=== PATIENT | male | born 1940 | race Caucasian/White ===

== ENCOUNTER 2019-10-30 11:18 | Inpatient (IN) | payer MEDICARE ==
[2019-10-30] MEDS ORDERED: D5 1/2 NS w/20 mEq KCL 0 ML ONE (11:33)
[2019-10-30] MEDS ORDERED: Dextrose 50% Abboject 50 ML SYRINGE ONE (11:35)
[2019-10-30] MEDS ORDERED: Metoclopramide HCl 10 MG TAB ONE (11:37)
[2019-10-30] MEDS ORDERED: Albuterol Sulfate 2.5 mg/3 ml Neb ONE (12:02)
[2019-10-30 12:13] LABS: Actual Bicarbonate (HCO3a) 11.9 mEq/L (22-28); Analyzer IN Cardio ER; Base Excess (BEa) -15.1 mEq/L (-2.0 to +3.0); Calcium, Ionized 1.05 mmol/L (1.12-1.30); Carboxyhemoglobin (COHb) 0.3 gm% (0.0-3.0); Hemoglobin (Hb) 8.8 g/dL (14.0-18.0); Potassium - ABG Lab 4.56 mmol/L (3.70-5.30)
[2019-10-30] MEDS ORDERED: Dexamethasone 10 MG/ML VIAL ONE (12:14)
[2019-10-30] MEDS ORDERED: Magnesium 2 GM/50 ML BAG (IN WATER) ONE (12:14)
[2019-10-30 12:18] LABS: Puncture Site LRA; pH, Arterial 7.19 (7.35-7.45)
[2019-10-30 12:50] LABS: Hemoglobin 9.1 g/dL (14.0-18.0); Red Blood Cell (RBC) Count 2.67 mill/uL (4.70-6.10); White Blood Cell (WBC) Count 2.4 thou/uL (4.8-10.8)
[2019-10-30 12:51] LABS: #Lymphocytes 0.9 thou/uL (1.20-3.40); #Monocytes 0.4 thou/uL (0.11-0.59); #Neutrophils 1.2 thou/uL (1.40-6.50); %Basophils 0.7 % (0.0-1.0); %Eosinophils 0.3 % (0.0-10.0); %Lymphocytes 35.5 % (21.0-51.0); %Monocytes 14.9 % (0.0-10.0); %Neutrophils 48.7 % (42.0-75.0); Platelet Count 159 thou/uL (130-400)
[2019-10-30 13:00] LABS: Bilirubin Negative (Negative); Blood, Urine Small (Negative); Clarity Clear (Clear); Glucose, Urine (Dipstick) Negative (Negative); Leukocyte Negative (Negative); Nitrite Negative (Negative); Protein, Urine (Dipstick) 30 mg/dL (Neg-Trace); Urobilinogen 0.2 mg/dL (Less than 2)
[2019-10-30 13:01] LABS: RBC/HPF 0-3 HPF (0-3); Squamous Epithelial 0-3 HPF (0-3); WBC/HPF 0-3 HPF (0-3)
[2019-10-30 13:02] LABS: Bacteria/HPF 1+ HPF (None Seen)
[2019-10-30 13:07] LABS: Mean Corpuscular HGB CONC 32.1 g/dL (32.0-36.0); Mean Corpuscular Hemoglobin 34.1 pg (27.0-31.0); RBC Distribution Width 14.4 % (11.5-14.5)
[2019-10-30 13:11] LABS: ALT (SGPT) 19 U/L (8-55); AST (SGOT) 32 U/L (5-34); Albumin 3.1 g/dL (3.4-4.8); Alkaline Phosphatase 118 U/L (40-110); Anion Gap 14 mmol/L (10-20); BUN (Urea Nitrogen) 28 mg/dL (8.4-25.7); Bilirubin, Total 0.3 mg/dL (0.2-1.2); CK (CPK) 63 U/L (30-200); Calc. Creatinine Clearance 0 mL/min (70-130); Calcium 6.8 mg/dL (7.8-10.44); Carbon Dioxide 13 mmol/L (23-31); Chloride 118 mmol/L (98-107); Estimated GFR-MDRD 29; Globulin 2.8 g/dL (2.4-3.5); Glucose 106 mg/dL (83-110); Lipase 9 U/L (8-78); Potassium 5.1 mmol/L (3.5-5.1); Protein, Total 5.9 g/dL (5.8-8.1); Sodium 140 mmol/L (136-145)
--- NOTE | 2019-10-30 13:20 | RAD ---
Chest one view HISTORY: Fever. Cough. COMPARISON: 05/01/2016. FINDINGS: Cardiac silhouette is magnified by projection. Pulmonary vasculature is unremarkable. Shallow inspiration accentuates pulmonary markings. Patient is rotated rightward. There is calcificat ion within the arterial structures. Postoperative changes are evident. Subtle ill-defined opacity at the right lung base partially obscures the apex of the right hemidiaphr agm less prominent parenchymal opacity at the left lateral lung base. No evidence of pneumothorax. Osseous structures are demineralized. IMPRESSION: Subtle bibasilar infiltrate, right greater than left. Clinical correlation regarding othe r signs and symptoms of right basilar pneumonitis is required. Atherosclerosis. Osteoporosis.
[2019-10-30 13:22] LABS: MDiff Complete? YES; Macrocytosis SLIGHT = 6-15 cells (100X) (0-5/hpf); Platelet Morphology Comment Appears Adequate; Polychromasia SLIGHT = 2-3 cells (100X) (0-2/hpf); Tear Drops SLIGHT = 2-5 cells (100X) (0-1/hpf)
[2019-10-30] MEDS ORDERED: Insulin Regular 300 UNITS/3 ML VIAL SC PRN ×2 (14:15)
[2019-10-30] MEDS ORDERED: Dextrose 50% Abboject 50 ML SYRINGE SLOW IVP PRN (14:15)
[2019-10-30] MEDS ORDERED: Dextrose 5% in Water 1,000 ML IV PRN (14:15)
[2019-10-30] MEDS ORDERED: Calcium Carbonate 500 MG ChewTAB PO PRN (14:18)
[2019-10-30] MEDS ORDERED: Acetaminophen 650 MG Suppository PR PRN (14:18)
[2019-10-30] MEDS ORDERED: Acetaminophen 650 MG/20.3 ML UDCUP PO PRN (14:24)
[2019-10-30] MEDS ORDERED: Sodium Bicarbonate 150 MEQ in Dextrose 5% in Water 1,000 ML IV SCH ×2 (14:30→16:03)
[2019-10-30] MEDS ORDERED: Enoxaparin Sodium 80 MG/0.8 ML SYRINGE ONE ×2 (14:39→14:42)
[2019-10-30 14:48] LABS: Legionella Urinary Ag Negative (Negative); Strep pneumo Urine Ag NEGATIVE (NEGATIVE)
[2019-10-30 15:48] LABS: Lactic Acid 3.5 mmol/L (0.5-2.2)
[2019-10-30] MEDS ORDERED: Nitroglycerin 0.4 MG TAB (25 Tab Bottle) PO PRN (16:18)
--- NOTE | 2019-10-30 16:26 | HP ---
PRIMARY CARE PHYSICIAN: Dr. Arvin Gonzales. CHIEF COMPLAINT: Altered mentation. HISTORY OF PRESENT ILLNESS: The patient is an 79-year-old male with diabetes mellitus type 2, presented to the emergency room by EMS with above complaint. The patient currently lives at home with his and daughter. He is on insulin on an as-needed basis. He checks his sugar on a daily basis. Over the last few days, the patient has flu-like symptoms. He started wheezing this morning. He also had some cough that was productive of small amount of phlegm. No fever or sick contacts reported. His blood sugar this morning was 220. He received 7 units of regular insulin per sliding scale by his family member. He was found to have altered mentation for which EMS was called. His blood sugar at home was 34. He received IV dextrose and was brought into the emergency room. His mentation improved. In the emergency room, he was placed on noninvasive positive-pressure ventilation. His x-ray showed bibasilar infiltrate. PAST MEDICAL HISTORY: 1. Diabetes mellitus type 2. 2. Hyperlipidemia. 3. Coronary artery disease, status post bypass in 2006. 4. History of nonsustained atrial arrhythmias. 5. Diabetes mellitus type 2. PAST SURGICAL HISTORY: 1. Coronary artery bypass grafting in 2006. 2. Hernia repair. ALLERGIES: NO KNOWN DRUG ALLERGIES. CURRENT HOME MEDICATIONS: The patient is on insulin as needed. Other medications to be verified. SOCIAL HISTORY: The patient currently lives at home as discussed above. No current use of smoking, alcohol, or drug use. He is full code. Please note that there is no family at the bedside. History is limited since he is on noninvasive positive-pressure ventilation and is hard of hearing. FAMILY HISTORY: Negative for heart disease. REVIEW OF SYSTEMS: Cannot be reliably obtained from the patient due to current mentation. PHYSICAL EXAMINATION: VITAL SIGNS: Temperature 97.5, respirations 20, and pulse rate of 93 with a blood pressure of 118/88 with O2 saturation of 100% on noninvasive positive-pressure ventilation. GENERAL: An 79-year-old male with mild respiratory distress, on noninvasive positive-pressure ventilation. HEENT: Head, atraumatic and normocephalic. Sclerae anicteric. Dry mucous membranes. No oral lesion. NECK: Supple. No JVD appreciated. No carotid bruit. LUNGS: Showed expiratory wheezing along with rhonchi, which was scattered. There were some rales at bases. Minimal accessory muscle use. HEART: S1-S2 present. Regular rate and rhythm. No rubs or gallops. ABDOMEN: Soft and nontender. Bowel sounds present. No rebound or guarding. No costovertebral angle tenderness. EXTREMITIES: No calf tenderness. There is bilateral lower extremity edema, right more than left. NEUROLOGIC: The patient is moving all of his extremities appropriately. No new focal deficit. PSYCHIATRY: The patient is alert, awake, answering questions appropriately. However, history is limited due to noninvasive positive-pressure ventilation. No family at the bedside. SKIN: Warm and dry. LYMPH NODE: No palpable lymph nodes in the neck. PERIPHERAL: Vascular radial pulses palpable bilaterally. MUSCULOSKELETAL: No joint swelling or tenderness. LABORATORY FINDINGS: 1. EKG by my review showed atrial fibrillation with PVCs. 2. Chest x-ray by my review showed infiltrate at bilateral bases. 3. CBC showed WBC 2.4 with hemoglobin 9.1, hematocrit 28.4, and platelet of 159. 4. D-dimer was 2.7. 5. ABG showed pH of 7.19 with pCO2 of 32 and PO2 of 94 with bicarbonate of 11.9. 6. Chemistry showed sodium 140, potassium 5.1, chloride 118, bicarb of 13, BUN of 28, creatinine 2.17, and lactic acid 2.4. 7. Troponin was negative. BNP 161. 8. Ketone was 0.14. 9. Urine was negative for Strep pneumoniae or Legionella. 10. Influenza screen was negative. IMPRESSION: 1. Acute hypoxic respiratory failure, secondary to bilateral pneumonia. 2. Sepsis secondary to acute hypoxic respiratory failure. 3. Toxic metabolic encephalopathy, multifactorial. 4. Metabolic acidosis/lactic acidosis. 5. New diagnosis of atrial fibrillation. 6. Hypertension. 7. Hyperlipidemia. 8. History of abdominal aortic aneurysm. 9. Coronary artery disease, status post coronary artery bypass grafting. 10. History of nonsustained atrial arrhythmias. PLAN: The patient will be monitored in the intensive care unit. We will continue noninvasive positive-pressure ventilation. We will start him on empiric antibiotics. Consult Critical Care. Echocardiogram will be obtained. He received several medications including 1 mg/kg of Lovenox, Levaquin, and Decadron with IV fluids in the emergency room. We will recheck labs in a.m. We will get venous Doppler to rule out DVT. The patient understands the plan of care. We will discuss the plan of care with the family when they arrive. Job ID: [id number]
[2019-10-30] MEDS: Cefepime 1 GM in Sodium Chloride 0.9% 100 ML IVPB SCH (17:49)
--- NOTE | 2019-10-30 17:53 | ULT ---
Bilateral lower extremity venous Doppler ultrasound: 10/30/2019 COMPARISON: None HISTORY: Edema, swelling, assess for DVT TECHNIQUE: Multiplanar grayscale sonographic imaging of the venous structures of bilateral lower extr emities obtained with color flow and spectral analysis FINDINGS: Bilateral common femoral veins, greater saphenous veins, profunda femoral veins, femoral ve ins, popliteal veins, and posterior tibial veins are patent. There is normal blood flow, augmentation, and compression within the deep venous system bilaterally. No evidence for DVT on eithe r side IMPRESSION: No evidence for deep venous thrombosis of either lower extremity.
[2019-10-30] MEDS: Senokot S 8.6-50 MG TAB PO SCH (20:56)
[2019-10-30] MEDS: Famotidine 20 MG TAB PO SCH (20:56)
[2019-10-30] MEDS: Famotidine/PF 20 mg/2ml Vial SLOW IVP SCH (20:56)
[2019-10-30] MEDS ORDERED: Heparin 5,000 UNITS/ML VIAL SC SCH (21:00)
[2019-10-30 21:37] LABS: BUN (Urea Nitrogen) 29 mg/dL (8.4-25.7); Calc. Creatinine Clearance 27 mL/min (70-130); Calcium 6.4 mg/dL (7.8-10.44); Chloride 120 mmol/L (98-107); Estimated GFR-MDRD 27; Glucose 133 mg/dL (83-110); Potassium 5.8 mmol/L (3.5-5.1); Sodium 139 mmol/L (136-145)
[2019-10-30 21:39] LABS: Carbon Dioxide Less than 8 mmol/L (23-31)
[2019-10-30] MEDS ORDERED: Sodium Bicarb 50 MEQ/50 ML VIAL IVP SCH (23:30)
[2019-10-31] MEDS ORDERED: Sodium Chloride 0.9% 1,000 ML IV SCH (00:30)
[2019-10-31 04:33] LABS: Actual Bicarbonate (HCO3v) 13 mEq/L (22-28); Base Excess -12.3 mEq/L (-2.0 to +3.0); Calcium, Ionized 0.89 mmol/L (1.16-1.32); Chloride (ABG LAB) 116 mmol/L (98-106); Hemoglobin (Hb) 7.1 g/dL (12.6-17.4); Potassium - ABG Lab 4.75 mmol/L (3.70-5.30); Sodium 138.8 mmol/L (133-146); pH (venous) 7.29 (7.32-7.43)
[2019-10-31 04:44] LABS: ALT (SGPT) 14 U/L (8-55); AST (SGOT) 22 U/L (5-34); Albumin 2.4 g/dL (3.4-4.8); Alkaline Phosphatase 91 U/L (40-110); Anion Gap 15 mmol/L (10-20); BUN (Urea Nitrogen) 30 mg/dL (8.4-25.7); Bilirubin, Total 0.2 mg/dL (0.2-1.2); CRP (Inflammatory) 2.93 mg/dL (= or < 0.5); Calc. Creatinine Clearance 27 mL/min (70-130); Calcium 6.2 mg/dL (7.8-10.44); Carbon Dioxide 13 mmol/L (23-31); Chloride 116 mmol/L (98-107); Estimated GFR-MDRD 28; Globulin 2.4 g/dL (2.4-3.5); Glucose 129 mg/dL (83-110); Potassium 4.8 mmol/L (3.5-5.1); Protein, Total 4.8 g/dL (5.8-8.1); Sodium 139 mmol/L (136-145)
[2019-10-31 04:48] LABS: Lactic Acid 4.7 mmol/L (0.5-2.2)
[2019-10-31 05:42] LABS: Band 36 % (5-11); Lymphocytes 21 % (21-51); MDiff Complete? YES; Macrocytosis SLIGHT = 6-15 cells (100X) (0-5/hpf); Mean Corpuscular HGB CONC 32.6 g/dL (32.0-36.0); Mean Corpuscular Hemoglobin 34.6 pg (27.0-31.0); Mean Platelet Volume 8.3 fL (7.4-10.4); Monocytes 14 % (0-10); Neutrophil 29 % (42-75); Platelet Count 112 thou/uL (130-400); Platelet Morphology Comment Appears Decreased; RBC Distribution Width 14.2 % (11.5-14.5); Red Blood Cell (RBC) Count 2.03 mill/uL (4.70-6.10); White Blood Cell (WBC) Count 2.6 thou/uL (4.8-10.8)
[2019-10-31 07:14] LABS: Reticulocyte Count 2.2 % (0.5-1.5)
--- NOTE | 2019-10-31 07:34 | RAD ---
EXAM: Single view of the chest HISTORY: Shortness of breath and pneumonia COMPARISON: 10/30/2019 FINDINGS: Single view of the chest shows an enlarged but stable cardiomediastinal silhouette. The pa tient is status post sternotomy. Bilateral lower lobe opacities may represent atelectasis or infiltrates. The bones are unremarkable. IMPRESSION: Stable exam
[2019-10-31] MEDS: Sodium Bicarbonate 150 MEQ in Dextrose 5% in Water 1,000 ML IV SCH ×2 (08:17→15:31)
[2019-10-31] MEDS ORDERED: Prevnar 13-Val Conj/PF 0.5 ML SYRINGE IM ONE (09:00)
[2019-10-31] MEDS ORDERED: FLU VACC TS2019-20(65YR UP)/PF 180 MCG/0.5 ML SYRINGE IM ONE (09:00)
[2019-10-31 09:45] LABS: Hemoglobin 6.9 g/dL (14.0-18.0); Platelet Count 111 thou/uL (130-400)
[2019-10-31] MEDS: Saccharomyces boulardii 250 MG CAP PO SCH (09:46)
[2019-10-31] MEDS: Senokot S 8.6-50 MG TAB PO SCH ×2 (09:47→22:03)
[2019-10-31] MEDS: Aspirin 81 mg Enteric Coated Tablet PO SCH (09:47)
[2019-10-31 10:04] LABS: Anion Gap 16 mmol/L (10-20); BUN (Urea Nitrogen) 30 mg/dL (8.4-25.7); Calc. Creatinine Clearance 29 mL/min (70-130); Calcium 6.1 mg/dL (7.8-10.44); Carbon Dioxide 13 mmol/L (23-31); Chloride 114 mmol/L (98-107); Estimated GFR-MDRD 28; Glucose 190 mg/dL (83-110); Potassium 4.4 mmol/L (3.5-5.1); Sodium 139 mmol/L (136-145)
[2019-10-31 10:09] LABS: Lactic Acid 4.3 mmol/L (0.5-2.2)
--- NOTE | 2019-10-31 10:30 | CON ---
DATE OF CONSULTATION: 10/31/2019 REASON FOR CONSULTATION: ICU stay. This encompasses 70 minutes of time, of that time, greater than 50 minutes was spent with the patient and/or the patient's unit in the hospital. HISTORY OF PRESENT ILLNESS: The patient is an 79-year-old male who was hospitalized yesterday with complaints of low blood sugar and shortness of breath. He was briefly on noninvasive mechanical ventilation that has now been discontinued. He is now on room air, doing fine. PAST MEDICAL HISTORY: 1. Diabetes mellitus type 2. 2. Hyperlipidemia. 3. Coronary artery disease, requiring bypass surgery. 4. Atrial arrhythmias. PAST SURGICAL HISTORY: 1. Coronary artery bypass grafting. 2. Hernia repair. ALLERGIES: NONE. MEDICATIONS PRIOR TO ADMISSION: 1. NPH insulin. Apparently, the NPH was on the sliding scale at home. 2. Zocor. Current inpatient medications reviewed, listed in chart. REVIEW OF SYSTEMS: Otherwise, negative. PHYSICAL EXAMINATION: VITAL SIGNS: Temperature 98.2, pulse 70, blood pressure 117/54, O2 saturation 95%. HEENT: Unremarkable. 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 LUNGS: Coarse rhonchi. CARDIOVASCULAR: S1 and S2. Regular. ABDOMEN: Soft, nontender. EXTREMITIES: No clubbing, cyanosis, or edema. LABORATORY DATA: White count 2.6, hemoglobin 7, hematocrit 21.5, and platelet count 112. Sodium 139, potassium 4.8, chloride 116, BUN 30, creatinine 2.2, CO2 of 13, anion gap 11. Urinalysis shows protein. X-ray shows question bilateral lower lobe infiltrates. ASSESSMENT: 1. Hypoglycemia at the time of admission which is resolved. 2. Acute hypoxic respiratory failure, possibly secondary to pneumonia. 3. Severe metabolic acidosis. 4. Acute renal insufficiency. 5. Severe anemia. RECOMMENDATION: 1. I would suggest transfusing the patient 1 unit of blood since he has underlying coronary artery disease. 2. Continue the antibiotics. 3. Continue bicarbonate drip. 4. Consider further investigative work of anemia once the patient is stabilized. 5. He is stable enough to go to [facility]. Job ID: [id number]
[2019-10-31] MEDS: Vancomycin 1 GM in Premix Bag 1 BAG IVPB SCH (14:19)
[2019-10-31 18:18] LABS: Lactic Acid 3.7 mmol/L (0.5-2.2)
[2019-10-31 18:22] LABS: Anion Gap 14 mmol/L (10-20); BUN (Urea Nitrogen) 31 mg/dL (8.4-25.7); Calc. Creatinine Clearance 27 mL/min (70-130); Calcium 6.3 mg/dL (7.8-10.44); Carbon Dioxide 18 mmol/L (23-31); Chloride 110 mmol/L (98-107); Estimated GFR-MDRD 26; Glucose 64 mg/dL (83-110); Potassium 4.6 mmol/L (3.5-5.1); Sodium 137 mmol/L (136-145)
[2019-10-31] MEDS: Cefepime 1 GM in Sodium Chloride 0.9% 100 ML IVPB SCH (18:47)
--- NOTE | 2019-10-31 19:26 | CON ---
DATE OF CONSULTATION: 10/31/2019 CONSULTING PHYSICIAN: Milo Hair MD REASON FOR CONSULTATION: Acidosis. REASON FOR ADMISSION: Altered mentation. HISTORY OF PRESENT ILLNESS: This is an 79-year-old male with history of type 2 diabetes, hypertension, hyperlipidemia, and coronary artery disease, came to the hospital with altered mentation and has been evaluated. The patient was found to have severe acidosis, and Nephrology was consulted. He is on bicarb drip now. No fever or chills. The patient is feeling better. He was moved to [facility] when I saw him and having his dinner without any issues and no complaints. He is hard of hearing, and he does not have the hearing aid. PAST MEDICAL HISTORY: Positive for type 2 diabetes, hyperlipidemia, coronary artery disease, and arrhythmias. PAST SURGICAL HISTORY: Coronary artery bypass and hernia repair. HOME MEDICATIONS: Reviewed. ALLERGIES: NO KNOWN DRUG ALLERGIES. SOCIAL HISTORY: No smoking, alcohol, or illicit drug use. FAMILY HISTORY: No history of kidney disease or heart disease. REVIEW OF SYSTEMS: Could not be done because of hard of hearing. PHYSICAL EXAMINATION: GENERAL: This is an elderly male, in no apparent distress. VITAL SIGNS: Temperature 99.1, pulse 92, respiratory rate 18, blood pressure 86/41. HEENT: Atraumatic and normocephalic. NECK: Supple. CV: S1 and S2. Rate and rhythm are regular. RESPIRATORY: Clear. GASTROINTESTINAL: Abdomen is soft. MUSCULOSKELETAL: 1+ edema. DERMATOLOGIC: No skin rash. NEUROLOGIC: Alert and awake. PSYCHIATRIC: Mood and affect are normal. LABORATORY DATA: Potassium 4.6, BUN is 31, creatinine is 2.4. ASSESSMENT AND PLAN: 1. Acute kidney injury. Monitor labs. 2. Acidosis. Agree with bicarb drip for now. 3. Lactic acidosis. 4. Hypocalcemia. Monitor. 5. Anemia. Avoid nephrotoxins. Continue bicarb drip. We will monitor. Job ID: [id number]
[2019-10-31] MEDS: Famotidine 20 MG TAB PO SCH (22:03)
[2019-10-31] MEDS: Famotidine/PF 20 mg/2ml Vial SLOW IVP SCH (22:03)
[2019-10-31] MEDS: Acetaminophen 325 MG TAB PO PRN (22:03)
--- NOTE | 2019-10-31 22:24 | CT ---
CT ABDOMEN AND PELVIS WITH IV CONTRAST: Indications: Abdominal, pancytopenia. Comparison: October 2013 FINDINGS: The lung bases reveal bibasilar infiltrates and/or atelectasis with right side effusion. Liver, spleen, and pancreas unremarkable. Motion artifact degrades the study. Stomach and duodenum unremarkable. Small bowel loops show nonspecific distension without dilatation. Small bowel loops are seen lateral to the right colon which may indicate a component of malrotation. This is stable from the prior study . Stool throughout the colon. Prominent stool in the rectum could represent impaction. Aorta shows atherosclerotic change and mild aneurysmal dilatation. Distal abdominal aorta measures 3. 5 cm diameter. Diffuse haziness in the subcutaneous adipose suggests anasarca. The osseous structures show osteopenia and degenerative changes at both hips. IMPRESSION: 1. Bibasilar atelectasis and infiltrates and small right effusion. 2. Abdominal aortic aneurysm. 3. A possible fecal impaction. 4. Evidence of subcutaneous anasarca. POS: [facility]
--- NOTE | 2019-10-31 22:25 | PDOC.HOSPP ---
- Subjective Encounter Date: 10/31/19 Encounter Time: 12:30 Subjective: Patient seen and examined for Sepsis/Acidosis/Resp failure. Off NIPPV. No cough/ SOB/CP/fever. No new complaints. No overnight events - Objective Vital Signs & Weight: Vital Signs (12 hours) Temp Pulse Pulse Resp BP Pulse Ox 10/31/19 18:38 92 16 98 10/31/19 15:00 99.1 F 10/31/19 14:31 78 26 H 99 10/31/19 14:24 99.2 F 79 25 H 126/55 L 98 10/31/19 13:13 99.1 F 89 21 H 114/66 97 10/31/19 12:50 98.2 F 91 25 H 127/65 96 10/31/19 11:00 98.1 F Weight Admit Weight 172 lb Weight 172 lb 13.478 oz Most Recent Monitor Data Heart Rate from ECG 96 NIBP 100/58 NIBP BP-Mean 72 Respiration from ECG 27 SpO2 97 I&O: 10/30/19 10/31/19 11/01/19 06:59 06:59 06:59 Intake Total 2528 2038 Output Total 425 800 Balance 2103 1238 Result Diagrams: 10/31/19 09:29 10/31/19 17:55 Additional Labs: Accuchecks 10/31/19 10/31/19 10/31/19 22:10 16:29 12:15 POC Glucose 149 H 77 233 H 10/31/19 10/30/19 07:59 23:55 POC Glucose 109 139 H EKG Reviewed by me: Yes (Tele SR) Hospitalist ROS - Review of Systems Respiratory: denies: cough, dry, shortness of breath, hemoptysis, SOB with excertion, pleuritic pain, sputum, wheezing, other Cardiovascular: denies: chest pain, palpitations, orthopnea, paroxysmal noc. dyspnea, edema, light headedness, other Gastrointestinal: denies: nausea, vomiting, abdominal pain, diarrhea, constipation, melena, hematochezia, other - Medication Medications: Active Medications Generic Name Dose Route Start Last Admin Trade Name Freq PRN Reason Stop Dose Admin Acetaminophen 650 mg 10/30/19 14:18 10/31/19 22:03 Tylenol PO 650 mg Q4H PRN Administration Headache/Fever/Mild Pain (1-3) Albuterol/Ipratropium 3 ml 10/30/19 14:30 10/31/19 18:38 Duoneb NEB 3 ml [id number] MICHAEL Administration Aspirin 81 mg 10/31/19 09:00 10/31/19 09:47 Ecotrin PO 81 mg DAILY MICHAEL Administration Famotidine 20 mg 10/30/19 21:00 10/31/19 22:03 Pepcid SLOW IVP Not Given QPM MICHAEL Famotidine 20 mg 10/30/19 21:00 10/31/19 22:03 Pepcid PO 20 mg QPM MICHAEL Administration Cefepime HCl 1 gm/ Sodium 100 mls @ 200 mls/hr 10/30/19 18:00 10/31/19 18:47 Chloride IVPB 100 mls Q24H MICHAEL Administration Sodium Bicarbonate 150 meq/ 1,150 mls @ 70 mls/hr 10/31/19 06:25 10/31/19 15: 31 Dextrose/Water IV 1,150 mls .[id number] MICHAEL Administration Vancomycin HCl 1 gm/ Device 200 mls @ 200 mls/hr 10/31/19 14:00 10/31/19 14: 19 IVPB 200 mls 1400 MICHAEL Administration Saccharomyces Boulardii 250 mg 10/31/19 09:00 10/31/19 09:46 Florastor PO 250 mg DAILY MICHAEL Administration Senna/Docusate Sodium 1 tab 10/30/19 21:00 10/31/19 22:03 Senokot S PO 1 tab BID MICHAEL Administration - Exam General Appearance: NAD Neck: supple, no JVD Heart: no gallops, no rubs, normal peripheral pulses, murmur present Respiratory: no wheezes, no rales, no ronchi, rhonchi Gastrointestinal: non-tender, non-distended, normal bowel sounds, no guarding, no rigidity Extremities: no cyanosis Neurological: no new deficit Psychiatric: normal affect, A&O x 3 Hosp A/P - Plan DVT proph w/SCDs 1. Acute hypoxic respiratory failure, secondary to bilateral pneumonia. s/p NIPPV 2. Sepsis secondary to acute hypoxic respiratory failure. 3. Toxic metabolic encephalopathy, multifactorial. 4. Metabolic acidosis/lactic acidosis. 5. New diagnosis of atrial fibrillation. 6. Anemia prob due to nutritional def. r/o GI bleed 7. Hyperlipidemia. 8. Hypertension. 9. Coronary artery disease, status post coronary artery bypass grafting. 10. History of nonsustained atrial arrhythmias. 11. History of abdominal aortic aneurysm. 12. Thrombocytopenia PLAN: Transfuse 1 unit PRBC Check stool for occult blood Reti 2.2 Vit B12/Folic acid normal DC Levaquin Start IV Vancomycin Pulm/Nephro input appreciated Consult ID AM labs Transfer to [facility]
--- NOTE | 2019-10-31 22:45 | CON ---
DATE OF CONSULTATION: 10/31/2019 REASON FOR CONSULTATION: Bacteremia. HISTORY OF PRESENT ILLNESS: An 79-year-old who has a history of hypertension and CKD with prior abdominal aortic aneurysm repair as well as coronary artery disease and type 2 diabetes mellitus, who was brought into the emergency room, because of wheezing noticed by family. In addition to that there was some change in mental status associated with hypoglycemia. No headaches. No shortness of breath. The patient complains of pain in the perineal area mostly around what he describes as hernias and pain in the left hip area. Apparently, the left hip pain is a chronic process and for example, he will have to stand up to have a bowel movement, because he cannot sit down due to the hip chronic symptoms. PAST MEDICAL HISTORY: Includes coronary artery disease, type 2 diabetes, hyperlipidemia, hypertension, hernia, groin area, coronary bypass graft surgery. SOCIAL HISTORY: Current smoker, lives with family. No alcoholic beverage use. ALLERGIES: NONE. CURRENT MEDICATIONS: 1. Tylenol. 2. DuoNebs. 3. Ecotrin. 4. Tums. 5. Cefepime. 6. Glucagon. 7. Insulin. 8. Levofloxacin. 9. Vancomycin. PHYSICAL EXAMINATION: VITAL SIGNS: T-max 99.2, blood pressure 99/44, pulse 89, respirations 26 to 28 , O2 saturation 100. SKIN: The patient has peripheral IV access,no Vieira catheter. The patient has a lesion nodular measuring 1.5 cm with a central area of necrosis and surrounding borders, they are elevated consistent with basal cell carcinoma. No lymphadenopathy. HEENT: Alopecia. Ocular movements conjugate. The patient has lost lot of his eyelashes. Oral cavity with artificial dentures. He does not have any oral cavity lesions otherwise. NECK: Supple. No jugular vein distention. LUNGS: Symmetric breath sounds, but expiratory wheezing noticed in both right and left hemithorax. Diminished heart sounds. HEART: S1 and S2 with a soft aortic murmur. Regular rate. ABDOMEN: Somewhat distended. He feels tenderness on palpation of the suprapubic areas, right and left side and groin. There is marked tenderness on mobilization of the left hip, but not the right, particularly abduction and adduction of hip/ left lower extremity. Pulses are 1+ in dorsalis pedis. 1+ edema in lower extremities. Onychodystrophy noted. LABORATORY DATA: White cell count shows 2.4, now 2.6, hemoglobin 9 and 7, platelets 159 and now down to 111, neutrophil percentage 29, bands are 36. Previous values from 2017, white cell count is 9.4, hemoglobin was 11.7, MCV 106, actually before in 2017 MCV was 93, platelet count had been normal in the past measurements. Creatinine is at 2.25. It has been elevated back to 2014 around that same level. Lactic acid 4.3. Liver profile was within normal limits. CRP 2.93, albumin 3.1. Microbiology, we have 2 sets of blood cultures with Staphylococcus epidermidis, yet to be susceptibility tested. There is a respiratory virus PCR panel, which was negative. Influenza A and B as well negative. Chest x-ray with single view of the chest with enlarged, but stable cardiomediastinal silhouette. A venogram with no evidence of deep vein thrombosis to either extremity. There was an abdominal and pelvis CT from October 2013 with stable appearance of the abdominal aorta, status post remote history of aneurysm repair, distended gallbladder, nonspecific mural thickening of the descending and sigmoid colon. ASSESSMENT: 1. Coronary disease. 2. Hypertension. 3. Type 2 diabetes. 4. Pain in left hip, which appears to be chronic. 5. History of hypoglycemia. 6. Bacteremia. 7. Pancytopenia. DISCUSSION: Differential diagnosis includes a true bacteremia, which appears to be less likely versus factitious bacteremia due to contamination of the sample. The second option is the more likely one since the timing of the collection is indicated as being at same time. Also patient has no device or central catheter., typically Staph epidermidis is associated with those. Infrequently, it can be associated with eklutna valve endocarditis and infection of aortic aneurysms. The other concern with this gentleman is the pancytopenia, which is a new finding. He does have bandemia as well as leukopenia, severe anemia with microcytosis and some platelet count decrease. This could be on the basis of either myelodysplastic syndrome or some cofactor deficiency such as copper. His B12 appears to be within normal limits. Hemolysis would be another concern. Chronic liver disease is another area of concern. The patient has been started on vancomycin and we will see what the next days demonstrate in terms of progress and the final results of the blood cultures, but we may be able to discontinue it. We will go ahead and image his abdomen and pelvis with CT with oral contrast only, that will take a look at his left hip and see if he has any metastatic malignancy there in view of his chronic smoking. Job ID: [id number] JERROD
[2019-11-01 04:26] LABS: Lactic Acid 3.6 mmol/L (0.5-2.2)
[2019-11-01 04:32] LABS: ALT (SGPT) 13 U/L (8-55); AST (SGOT) 24 U/L (5-34); Albumin 2.2 g/dL (3.4-4.8); Alkaline Phosphatase 78 U/L (40-110); Anion Gap 14 mmol/L (10-20); BUN (Urea Nitrogen) 33 mg/dL (8.4-25.7); Bilirubin, Total 0.5 mg/dL (0.2-1.2); Calc. Creatinine Clearance 27 mL/min (70-130); Calcium 5.8 mg/dL (7.8-10.44); Carbon Dioxide 17 mmol/L (23-31); Chloride 110 mmol/L (98-107); Estimated GFR-MDRD 26; Globulin 2.3 g/dL (2.4-3.5); Glucose 125 mg/dL (83-110); Magnesium 1.8 mg/dL (1.6-2.6); Potassium 4.4 mmol/L (3.5-5.1); Protein, Total 4.5 g/dL (5.8-8.1); Sodium 137 mmol/L (136-145)
[2019-11-01 05:41] LABS: Anisocytosis SLIGHT = 6-15 cells (100X) (0-5/hpf); Band 13 % (5-11); Eosinophils 6 % (0-10); Hemoglobin 6.9 g/dL (14.0-18.0); Lymphocytes 46 % (21-51); MDiff Complete? YES; Mean Corpuscular HGB CONC 33.4 g/dL (32.0-36.0); Mean Corpuscular Hemoglobin 33.7 pg (27.0-31.0); Mean Platelet Volume 8.1 fL (7.4-10.4); Monocytes 12 % (0-10); Neutrophil 22 % (42-75); Platelet Count 110 thou/uL (130-400); Platelet Morphology Comment Appears Decreased; RBC Distribution Width 15.6 % (11.5-14.5); Red Blood Cell (RBC) Count 2.05 mill/uL (4.70-6.10); White Blood Cell (WBC) Count 3.4 thou/uL (4.8-10.8)
[2019-11-01] MEDS: Saccharomyces boulardii 250 MG CAP PO SCH (08:00)
[2019-11-01] MEDS: Senokot S 8.6-50 MG TAB PO SCH ×2 (08:00→20:17)
[2019-11-01] MEDS: Aspirin 81 mg Enteric Coated Tablet PO SCH (08:00)
--- NOTE | 2019-11-01 08:37 | PRG ---
DATE OF SERVICE: 11/01/2019 SUBJECTIVE: Mr. Zamudio seems to be doing reasonably well, did not require BiPAP last night. OBJECTIVE: VITAL SIGNS: Temperature 99.6, pulse 94, blood pressure 91/47, and O2 saturation 100%. HEENT: Unremarkable. NECK: Upper airway noises noted. LUNGS: Fairly clear. CARDIAC: S1 and S2. Regular. ABDOMEN: Soft. EXTREMITIES: Some edema in the right arm. DIAGNOSTIC DATA: His cultures are growing out gram-positive cocci in 2/2 bottles Staphylococcus epidermidis. White blood cell count is 3.4, hematocrit 20.9, and platelet count 110. Sodium 137, potassium 4.4, chloride 110, CO2 of 17, BUN 33, creatinine 2.4, and glucose 125. ASSESSMENT: 1. Bacteremia from Staphylococcus epidermidis. 2. Hypoglycemia, which is resolved. 3. Acute respiratory failure secondary to pneumonia. 4. Metabolic acidosis. 5. Acute renal insufficiency. 6. Severe anemia. PLAN: 1. Continue the bicarb drip. 2. We would transfuse one additional unit of blood and continue to monitor his labs. 3. Continue antibiotics per Dr. Keene. Job ID: [id number]
[2019-11-01] MEDS: Sodium Bicarbonate 150 MEQ in Dextrose 5% in Water 1,000 ML IV SCH ×2 (10:05→13:36)
--- NOTE | 2019-11-01 13:05 | PRG ---
DATE OF SERVICE: 11/01/2019 SUBJECTIVE: Patient was seen and examined at bedside and overnight events noted. Patient denies any shortness of breath or chest pain or palpitation. No history of nausea or vomiting or diarrhea or fever or chills or cramps. OBJECTIVE: GENERAL: This is an elderly male, in no apparent distress. VITAL SIGNS: Temperature 100.6. Heart rate 87. Respiratory rate 23. Blood pressure 95/56. HEENT: Atraumatic, normocephalic. Oral mucosa is moist NECK: Supple. CARDIOVASCULAR: S1, S2 heard. Rate and rhythm regular. RESPIRATORY: Clear to auscultation. GASTROINTESTINAL: Abdomen is soft. MUSCULOSKELETAL: No tenderness. No edema. DERMATOLOGIC: No skin rash. NEUROLOGIC: Alert and awake and oriented X3. No focal neurologic deficits. Moving all the extremities. PSYCHIATRIC: Mood and affect normal. LABORATORY DATA: Potassium is 4.4, BUN is 33, creatinine is 2.4, bicarb is 17, anion gap is 14, lactate is 3.6. Calcium is 5.8, corrected is 7.4. Albumin is 2.2. Hemoglobin is 6.9. ASSESSMENT AND PLAN: 1. Acute kidney injury on chronic kidney disease, stage 4. Seems to be not much different from his baseline, his baseline creatinine at least from last few years has been around 1.8 to 2.2. 2. Chronic kidney disease, stage 4. 3. Metabolic acidosis with normal anion gap, most likely having renal tubular acidosis. Review of his old records states that he was acidotic in the past also. Plan is to increase bicarb drip and we will also check urine anion gap. 4. Lactic acidosis. 5. Hypocalcemia. We will check PTH and vitamin D, to rule out any deficiencies. We will check phosphorus, magnesium, and uric acid. 6. Anemia, macrocytic and chronic anemia. Agree with blood transfusion, and folate and B12 levels are normal. We will continue to monitor, renal function is stable, we will increase bicarb drip for now and we will check labs. Job ID: [id number]
[2019-11-01] MEDS: Acetaminophen 325 MG TAB PO PRN (13:33)
[2019-11-01] MEDS: Vancomycin 1 GM in Premix Bag 1 BAG IVPB SCH (13:33)
--- NOTE | 2019-11-01 13:49 | PDOC.HOSPP ---
- Subjective Encounter Date: 11/01/19 Encounter Time: 10:30 Subjective: Patient seen and examined for Resp failure. No melena/hematemesis. No new complaints. No overnight events - Objective Vital Signs & Weight: Vital Signs (12 hours) Temp Pulse Pulse Resp BP Pulse Ox 11/01/19 13:39 100.6 F H 94 25 H 100/61 98 11/01/19 11:58 100.6 F H 11/01/19 10:59 87 23 H 100 11/01/19 10:03 99.1 F 90 24 H 99/55 L 100 11/01/19 08:00 98 11/01/19 07:40 99.6 F 11/01/19 06:37 98 11/01/19 06:33 91 21 H 98 11/01/19 04:00 97.6 F 11/01/19 02:36 93 20 99 Weight Admit Weight 172 lb Weight 180 lb 3 oz Most Recent Monitor Data Heart Rate from ECG 92 NIBP 100/61 NIBP BP-Mean 74 Respiration from ECG 28 SpO2 98 I&O: 10/31/19 11/01/19 11/02/19 06:59 06:59 06:59 Intake Total 2528 4026 350 Output Total 425 1550 Balance 2103 2476 350 Result Diagrams: 11/01/19 03:51 11/01/19 03:51 Additional Labs: Accuchecks 11/01/19 10/31/19 10/31/19 08:20 22:10 16:29 POC Glucose 189 H 149 H 77 EKG Reviewed by me: Yes (Tele SR) Hospitalist ROS - Review of Systems Respiratory: denies: cough, dry, shortness of breath, hemoptysis, SOB with excertion, pleuritic pain, sputum, wheezing, other Cardiovascular: denies: chest pain, palpitations, orthopnea, paroxysmal noc. dyspnea, edema, light headedness, other Gastrointestinal: denies: nausea, vomiting, abdominal pain, diarrhea, constipation, melena, hematochezia, other - Medication Medications: Active Medications Generic Name Dose Route Start Last Admin Trade Name Freq PRN Reason Stop Dose Admin Acetaminophen 650 mg 10/30/19 14:18 11/01/19 13:33 Tylenol PO 650 mg Q4H PRN Administration Headache/Fever/Mild Pain (1-3) Albuterol/Ipratropium 3 ml 10/30/19 14:30 11/01/19 10:59 Duoneb NEB 3 ml [id number] MICHAEL Administration Aspirin 81 mg 10/31/19 09:00 11/01/19 08:00 Ecotrin PO 81 mg DAILY MICHAEL Administration Cefepime HCl 1 gm/ Sodium 100 mls @ 200 mls/hr 10/30/19 18:00 10/31/19 18:47 Chloride IVPB 100 mls Q24H MICHAEL Administration Vancomycin HCl 1 gm/ Device 200 mls @ 200 mls/hr 10/31/19 14:00 11/01/19 13: 33 IVPB 200 mls 1400 MICHAEL Administration Sodium Bicarbonate 150 meq/ 1,150 mls @ 100 mls/hr 11/01/19 12:37 11/01/19 13 :36 Dextrose/Water IV 1,150 mls .[id number] MICHAEL Administration Pantoprazole Sodium 40 mg 11/01/19 09:00 11/01/19 08:00 Protonix PO 40 mg DAILY MICHAEL Administration Saccharomyces Boulardii 250 mg 10/31/19 09:00 11/01/19 08:00 Florastor PO 250 mg DAILY MICHAEL Administration Senna/Docusate Sodium 1 tab 10/30/19 21:00 11/01/19 08:00 Senokot S PO 1 tab BID MICHAEL Administration - Exam General Appearance: NAD Neck: supple, no JVD Heart: RRR, no gallops Respiratory: no wheezes, no ronchi Gastrointestinal: non-tender, non-distended Extremities: no cyanosis Neurological: no new deficit Psychiatric: normal affect Hosp A/P - Plan DVT proph w/SCDs 1. Acute hypoxic respiratory failure, secondary to bilateral pneumonia. s/p NIPPV 2. Sepsis secondary to acute hypoxic respiratory failure. 3. Toxic metabolic encephalopathy, multifactorial. 4. Metabolic acidosis/lactic acidosis. 5. New diagnosis of atrial fibrillation - converted to SR. Not anticoag candidate. 6. Anemia prob due to nutritional def. r/o GI bleed 7. Hyperlipidemia. 8. Hypertension. 9. Coronary artery disease, status post coronary artery bypass grafting. 10. History of nonsustained atrial arrhythmias. 11. History of abdominal aortic aneurysm. 12. Thrombocytopenia PLAN: Receiving 1 unit PRBC stool for occult blood negative Check Haptoglobin/LDH Cont Bicarb drip Cont IV Vancomycin/Cefepime Monitor Vancomycin level Cont IMCU monitoring Cont other meds
--- NOTE | 2019-11-01 15:52 | CON ---
DATE OF CONSULTATION: 10/31/2019 REASON FOR CONSULTATION: Atrial fibrillation. HISTORY OF PRESENT ILLNESS: Mr. Zamudio is an 79-year-old gentleman, whom I saw and evaluated 4 years ago. He has not been seen in the office since that time. He recently presented with altered mental status, anemia, and renal insufficiency. During my interview, he is confused. There is no family available. He does appear to be in atrial fibrillation, but appears to be rate controlled. He has no previous history of underlying atrial fibrillation. PAST MEDICAL HISTORY: CAD, status post bypass surgery; aortic aneurysm repair; diabetes mellitus; hyperlipidemia; hernia repair. ALLERGIES: NONE. SOCIAL HISTORY: Currently, lives at home. He is currently . No tobacco, alcohol use. HOME MEDICATIONS: Zocor and NovoLog are the only two listed. REVIEW OF SYSTEMS: Unobtainable. PHYSICAL EXAMINATION: Vital Signs: Current blood pressure 100/61, pulse 94, respirations 20. General: The patient is a pleasant male, in no acute distress, appears stated age. Head, Eyes, Ears, Nose and Throat: Sclerae without icterus. Mouth: Moist mucous membranes, normal palate. Neck: No jugular venous distention. Carotid upstroke is brisk. No bruits bilaterally. Lungs: Clear to auscultation. Heart: Regular rate and rhythm, normal S1 and S2. Abdomen: Soft, nontender, nondistended. Extremities: No edema. PERTINENT LABORATORY DATA: Hemoglobin 7.0, hematocrit 21.5, platelet count 112. IMPRESSION: 1. New onset atrial fibrillation. 2. Coronary artery disease. 3. Status post bypass surgery. 4. Hypoglycemia. RECOMMENDATIONS: Mr. Zamudio appears to be rate controlled. He is markedly anemic with altered mental status. This may be related to hypoglycemia. Unfortunately, Mr. Zamudio is not able to provide a good history. At this point, we will refrain from anticoagulation therapy due to anemia of unknown etiology. Given that he is currently rate controlled, we will continue close observation. I will review his echo. Job ID: [id number]
[2019-11-01 17:20] LABS: Potassium, Urine 13.2 mmol/L
--- NOTE | 2019-11-01 17:48 | PRG ---
DATE OF SERVICE: 11/01/2019 SUBJECTIVE: Mr. Zamudio has been transferred to the [facility] because of respiratory complications. He is awake now and feeling more comfortable, still has some marked tenderness in the left groin region as noticed below in the physical examination section. He denies chest pain. No abdominal pain. OBJECTIVE: VITAL SIGNS: His T-max 100.6, blood pressure 101/55, pulse 82, respirations 20 to 25, and O2 saturation 98%. Is and Os have been positive for the past 2 days anywhere from 2000 to 2400. GENERAL: He does not appear in distress at the moment. HEENT: His ocular movements are conjugate. LUNGS: Symmetric air entry with faint basilar crackles. HEART: S1 and S2. Regular rate. EXTREMITIES: Erythema in this left side of the scrotum and the medial aspect of the left groin and left thigh. There is marked tenderness on palpation of this area compared with the right side. There is edema in lower extremities. LABORATORY DATA: White cell count is 3.4, hemoglobin 6.9, platelets 110,000, 22% neutrophils, 13% bands, and 46% lymphocytes. Microbiology with the findings discussed as before Staph epidermidis in 2 sets that could more likely represent infected tissues bacteremia due to contamination of the sample. The patient had a CT abdomen and pelvis. This was done without contrast, which limits the sensitivity of the exam and that demonstrated bibasilar atelectases, anasarca, possible fecal impaction and abdominal aortic aneurysm. ASSESSMENT AND DISCUSSION: Coronary artery disease, hypertension, type 2 diabetes, left hip pain, bacteremia, possibly infected tissues, pancytopenia of unclear etiology, possibly due to myelodysplastic syndrome and inflammatory process in the left groin and scrotal area. DISCUSSION: The concern here is with this left groin process, this could represent a more aggressive inflammatory process and the CT was not able to identify this because of lack of contrast. I believe we need to perform a different imaging study may be an MRI without contrast. He is currently on cefepime and vancomycin. We will switch him to meropenem and vancomycin adjusted for renal function. Job ID: [id number]
--- NOTE | 2019-11-01 18:04 | PDOC.PALCO ---
Palliative Care Consult - Consult Details Requesting Physician: Dr Hair Reason for Consult: goals of care, advance directives assistance, family support Family Members Present: None - Pertinent HPI 79 year old male who resides with his , daughter and son-in-law. EMS was called to the home for altered mental status, glucose was found to be 34. Patient managed Diabetes at home with insulin, and had "flu like" symptoms for the past few days. Received IV dextrose en route to the emergency room, evaluation identified bibasilar infiltrate, he was admitted for medical management. - Pertinent PMH Diabetes, HDL, CAD, - Social History Smoking Status: Never smoker Smoking: no tobacco exposure Alcohol Use: none Drug Use History: none Living Situation: , with family/parents - Medications MAR Reviewed: Yes - Allergies Allergies/Adverse Reactions: Allergies Allergy/AdvReac Type Severity Reaction Status Date / Time No Known Allergies Allergy Verified 11/17/13 08:47 - Subjective Awake, alert. Cheerful and conversing easily. Denies complaints other than "My legs are weak". - ROS Constitutional: weakness Eyes: other (denies vision changes) ENT: change in hearing, other (negative for difficulity swallowing, ) Respiratory: congestion, dry cough Cardiology: other (negative for chest pain, palpitations) Gastrointestinal: other (negative for diarrhea, constipation) Genitourinary: other (negative for frequency, ) Musculoskeletal: arthritis/arthralgias Psychological: other (negative for depression, anxiety) - Objective Vital Signs: Vital Signs - Most Recent Temp Pulse Resp BP Pulse Ox 100.6 F H 82 20 98/57 L 98 11/01/19 13:39 11/01/19 15:28 11/01/19 15:28 11/01/19 14:06 11/01/19 15:28 Palliative Performance Scale: 50 - Physical Exam Constitutional: NAD, ill appearing HEENT: EOMI, moist MMs, sclera anicteric Respiratory: wheezing present Cardiovascular: RRR Deviation from normal: murmur, distant heart sounds Gastrointestinal: continent, non-tender, no distention, positive bowel sounds Genitourinary: continent Musculoskeletal: edema present Neurology: moves all 4 limbs Skin: bruising, fragile Psychiatric: A&O x 3, normal mood - Problem List (1) Palliative care encounter Code(s): Z51.5 - ENCOUNTER FOR PALLIATIVE CARE Current Visit: Yes Status: Acute (2) Sepsis Code(s): A41.9 - SEPSIS, UNSPECIFIED ORGANISM Current Visit: Yes Status: Acute (3) Atrial fibrillation Code(s): I48.91 - UNSPECIFIED ATRIAL FIBRILLATION Current Visit: Yes Status : Acute (4) Physical deconditioning Code(s): R53.81 - OTHER MALAISE Current Visit: Yes Status: Acute (5) Acute kidney injury superimposed on CKD Code(s): N17.9 - ACUTE KIDNEY FAILURE, UNSPECIFIED; N18.9 - CHRONIC KIDNEY DISEASE, UNSPECIFIED Current Visit: No Status: Acute (6) Bradycardia Code(s): R00.1 - BRADYCARDIA, UNSPECIFIED Current Visit: No Status: Acute (7) Anemia Code(s): D64.9 - ANEMIA, UNSPECIFIED Current Visit: No Status: Chronic Qualifiers: Anemia type: unspecified type Qualified Code(s): D64.9 - Anemia, unspecified - Plan/Recommendations Plan: Introduced Palliative Care. When asking patient his favorite things it was family and cooking, he as won over 40 trophies for his BBQ. Patient goal is to return home, with his family. Introduced option of home health for continue PT for strength. Patient self reports mechanical fall at home related to infrequent incontinence of bowel. No family at bedside, will follow up for further conversation related to Goal of Care and resuscitation when family present 11/02/2019 [45] minutes spent on this encounter with >50% of the time in counseling and coordination of care. Thank you for this very appropriate consult.
--- NOTE | 2019-11-01 18:21 | PRG ---
DATE OF SERVICE: 11/01/2019 SUBJECTIVE: Mr. Zamudio is currently receiving packed red blood cells. Hemoglobin was decreased. His shortness of breath has been stable. The patient is currently on antibiotic therapy. He did have a fever of 100.6. OBJECTIVE: GENERAL: Patient is a pleasant male who is in no acute distress, appears older than stated age. VITAL SIGNS: Blood pressure 98/53, pulse 87, and temperature fever as described above. NEUROLOGIC: The patient is alert and oriented x3 with no focal neurologic deficits. HEENT: Sclerae without icterus. Mouth has moist mucous membranes with normal pallor. NECK: No JVD. Carotid upstroke brisk. No bruits bilaterally. LUNGS: Clear to auscultation with unlabored respirations. BACK: No scoliosis or kyphosis. CARDIAC: Regular rate and rhythm with normal S1 and S2. No S3 or S4 noted. No significant rubs, murmurs, thrills, or gallops noted throughout the precordium. PMI is not displaced. There is no parasternal heave. ABDOMEN: Soft, nontender, nondistended. No peritoneal signs present. No hepatosplenomegaly. No abnormal striae. EXTREMITIES: 2+ femoral and 2+ dorsalis pedis pulses. No cyanosis, clubbing, or edema. SKIN: No gross abnormalities. PERTINENT LABORATORY DATA: Hemoglobin 6.9. Creatinine 2.45. IMPRESSION: 1. Paroxysmal atrial fibrillation. 2. Anemia. 3. Shortness of breath. 4. Mental status changes. 5. Bacteremia. RECOMMENDATIONS: 1. He is currently on antibiotic therapy and recommendations per Dr. Balwinder Keene. 2. Transfusion currently in progress. Repeat CBC in a.m. 3. The patient currently in sinus rhythm. Atrial fibrillation appeared to occur for less than one day. At this point, recommend close observation. We would not recommend anticoagulation therapy, although his low hemoglobin may be secondary to renal insufficiency. Job ID: [id number]
[2019-11-01] MEDS: MEROPENEM 1 GM/50 ML 1 GM in Premix Bag 1 BAG IVPB SCH (20:17)
[2019-11-01] MEDS ORDERED: HumaLOG 300 UNITS/3 ML VIAL SC PRN (20:57)
[2019-11-01] MEDS ORDERED: Dextrose 5% in Water 1,000 ML IV PRN (20:57)
[2019-11-01] MEDS ORDERED: Dextrose 50% Abboject 50 ML SYRINGE SLOW IVP PRN (20:57)
[2019-11-02] MEDS: Sodium Bicarbonate 150 MEQ in Dextrose 5% in Water 1,000 ML IV SCH (01:22)
[2019-11-02 04:17] LABS: Lactic Acid 2.6 mmol/L (0.5-2.2)
[2019-11-02 04:19] LABS: Phosphorus 4.1 mg/dL (2.3-4.7)
[2019-11-02 04:23] LABS: ALT (SGPT) 15 U/L (8-55); AST (SGOT) 28 U/L (5-34); Albumin 2.3 g/dL (3.4-4.8); Alkaline Phosphatase 92 U/L (40-110); Anion Gap 13 mmol/L (10-20); BUN (Urea Nitrogen) 32 mg/dL (8.4-25.7); Bilirubin, Total 0.6 mg/dL (0.2-1.2); Calc. Creatinine Clearance 31 mL/min (70-130); Carbon Dioxide 22 mmol/L (23-31); Chloride 107 mmol/L (98-107); Estimated GFR-MDRD 29; Globulin 2.6 g/dL (2.4-3.5); Glucose 94 mg/dL (83-110); Magnesium 1.8 mg/dL (1.6-2.6); Potassium 3.8 mmol/L (3.5-5.1); Protein, Total 4.9 g/dL (5.8-8.1); Sodium 138 mmol/L (136-145); Uric Acid 6.2 mg/dL (3.5-7.2)
[2019-11-02 04:33] LABS: Band 9 % (5-11); Eosinophils 6 % (0-10); Hemoglobin 8.6 g/dL (14.0-18.0); Lymphocytes 46 % (21-51); MDiff Complete? YES; Mean Corpuscular HGB CONC 33.5 g/dL (32.0-36.0); Mean Corpuscular Hemoglobin 33.6 pg (27.0-31.0); Mean Platelet Volume 7.9 fL (7.4-10.4); Monocytes 12 % (0-10); Neutrophil 27 % (42-75); Platelet Count 117 thou/uL (130-400); Platelet Morphology Comment Appears Decreased; Red Blood Cell (RBC) Count 2.55 mill/uL (4.70-6.10); White Blood Cell (WBC) Count 3.3 thou/uL (4.8-10.8)
[2019-11-02 04:38] LABS: Calcium 5.9 mg/dL (7.8-10.44)
[2019-11-02] MEDS ORDERED: Calcium Gluc 4.6 MEQ/10 ML (100 MG/ML) SLOW IVP SCH (04:57)
[2019-11-02] MEDS ORDERED: Ergocalciferol 1.25 MG(50,000 UNITS) CAP PO SCH (09:00)
--- NOTE | 2019-11-02 09:27 | PRG ---
DATE OF SERVICE: 11/02/2019 SUBJECTIVE: The patient is feeling better. Slept well last night. No complaints. OBJECTIVE: VITAL SIGNS: Temperature 99.4, pulse 86, blood pressure 107/58, O2 saturation in the 90s. HEENT: Unremarkable. NECK: No JVD. LUNGS: Clear. CARDIAC: S1 and S2. Regular. ABDOMEN: Soft. EXTREMITIES: No edema. LABORATORY DATA: White blood cell count 3.3, hematocrit 25.5, and platelet count 117. Sodium 138, potassium 3.8, BUN 32, creatinine 2.2. ASSESSMENT: 1. Sepsis. 2. Atrial fibrillation. 3. Resolved hypoglycemia. 4. Acute respiratory failure secondary to pneumonia. 5. Acute renal insufficiency. 6. Anemia. 7. Improved metabolic acidosis. PLAN: It looks as if he is still on bicarbonate drip. I will leave that up to Dr. Salvador. He is doing well with current antibiotics. From my standpoint, he can be transferred to Telemetry. Job ID: [id number]
[2019-11-02] MEDS: MEROPENEM 1 GM/50 ML 1 GM in Premix Bag 1 BAG IVPB SCH ×2 (10:09→20:40)
[2019-11-02] MEDS: Sodium Bicarbonate Tab 325 MG TAB PO SCH ×3 (10:09→20:39)
[2019-11-02] MEDS: Senokot S 8.6-50 MG TAB PO SCH ×2 (10:09→20:41)
[2019-11-02] MEDS: Saccharomyces boulardii 250 MG CAP PO SCH (10:10)
[2019-11-02] MEDS: Calcium Carbonate 500 MG TAB PO SCH ×2 (10:10→17:22)
[2019-11-02] MEDS: Aspirin 81 mg Enteric Coated Tablet PO SCH (10:10)
[2019-11-02] MEDS: HumaLOG 300 UNITS/3 ML VIAL SC PRN (11:38)
[2019-11-02 13:57] LABS: Vancomycin, Trough 14.3 ug/mL
[2019-11-02] MEDS: Vancomycin 1 GM in Premix Bag 1 BAG IVPB SCH (14:53)
[2019-11-02] MEDS: Calcium Carbonate 600 MG + Vit D TAB PO SCH (17:22)
--- NOTE | 2019-11-02 17:26 | PRG ---
DATE OF SERVICE: 11/02/2019 SUBJECTIVE: Patient was seen and examined at bedside and overnight events noted. Patient denies any shortness of breath or chest pain or palpitation. No history of nausea or vomiting or diarrhea or fever or chills or cramps. OBJECTIVE: GENERAL: This is a well-built male, in no apparent distress. VITAL SIGNS: Temperature 99.2. Pulse 90. Respiratory rate 25. Blood pressure 102/56. HEENT: Atraumatic, normocephalic. Oral mucosa is moist. NECK: Supple. CARDIOVASCULAR: S1, S2 heard. Rate and rhythm regular. RESPIRATORY: Clear to auscultation. GASTROINTESTINAL: Abdomen is soft. MUSCULOSKELETAL: No tenderness. No edema. DERMATOLOGIC: No skin rash. NEUROLOGIC: Alert and awake and oriented x3. No focal neurologic deficits. Moving all the extremities. PSYCHIATRIC: Mood and affect normal. LABORATORY DATA: Potassium is 3.8, BUN is 32, and creatinine is 2.2. ASSESSMENT AND PLAN: 1. Acute kidney injury on chronic kidney disease stage 4, stable. 2. Chronic kidney disease stage 4. 3. Metabolic acidosis. Labs pending. 4. Lactic acidosis. 5. Hypocalcemia. We will add calcium. 6. Vitamin D deficiency. Continue vitamin D. 7. Anemia of chronic disease and microcytic anemia. We will continue to monitor. Renal function is stable. Start on calcium supplements and we will follow. Job ID: [id number]
[2019-11-02] MEDS ORDERED: Polyethylene Glycol 3350 17 GM Packet PO PRN (18:06)
--- NOTE | 2019-11-02 19:19 | PRG ---
DATE OF SERVICE: 11/02/2019 SUBJECTIVE: Mr. Zamudio is developing progressively worsening scrotal swelling from his anasarca most likely and typical phenomenon that is seen with this kind of situation with dependent drainage into the scrotal sac and progressive distention. He denies any respiratory symptoms. OBJECTIVE: VITAL SIGNS: He had a T-max of 100.6 yesterday and has been afebrile since, blood pressure 101/65. GENERAL: He is awake. LUNGS: Basilar inspiratory crackles. HEART: S1 and S2, regular rate. ABDOMEN: Distended with ascites. GENITOURINARY: Scrotal sac is markedly distended and there is an area of erythema in the left medial thigh, which is a bit smaller than before. LABORATORY DATA: His white cell count 3.3, hemoglobin 8.6, platelets 117,000, with 27% neutrophils and 9% bands. Creatinine 2.22, sodium 138, and potassium 3.8. Liver profile normal. Positive blood cultures are likely representing contamination of the sample rather than a true bacteremia. ASSESSMENT AND DISCUSSION: Coronary artery disease, hypertension, type 2 diabetes, left hip pain, bacteremia, possible inflammatory process of soft tissues of left groin area, pancytopenia of unclear etiology, potentially associated with myelodysplastic syndrome and anasarca with progressive distention of the scrotal sac due to anasarca. The imaging study of the pelvis did not show any inflammatory process, but that was done without contrast, so an MRI might be necessary depending on clinical progress. It looks like at this moment, the edema seems to be the main issue here causing tenderness in the scrotal sac and groin region. Those patients usually require some element of diuresis, if possible. In his case, the renal dysfunction will prevent significant diuresis to be accomplished at least in a rapid fashion. I am afraid this is going to be a protracted sanches to decrease the amount of scrotal sac distention. Job ID: [id number]
--- NOTE | 2019-11-02 19:50 | ULT ---
SCROTAL ULTRASOUND: 11/02/19 HISTORY: Scrotal swelling and pain. FINDINGS: There is diffuse scrotal edema. The testicles are somewhat small but are symmetric and are homogeneou s. Small bilateral hydroceles. Color Doppler with spectral analysis used to evaluate both testicles. No significant blood flow seen in either testicle. Some minimal flow was seen in the periphery on the left. IMPRESSION: 1. No significant blood flow identified to either testicle. 2. Diffuse scrotal edema. 3. Small hydroceles. The technologist notified the patient's nurse of the loss of blood flow to the testicles. The patient 's nurse said she would notify the attending physician of this finding. POS: [facility]
--- NOTE | 2019-11-02 23:04 | PDOC.HOSPP ---
- Subjective Encounter Date: 11/02/19 Encounter Time: 12:00 Subjective: Patient seen and examined for Sepsis. Scrotal discomfort. No new complaints. No overnight events - Objective Vital Signs & Weight: Vital Signs (12 hours) Temp Pulse Pulse Resp BP BP Pulse Ox 11/02/19 22:14 88 24 H 95 11/02/19 20:54 99.3 F 11/02/19 20:00 95 11/02/19 18:58 90 23 H 95 11/02/19 13:54 88 22 H 94 L 11/02/19 12:19 99.2 F 11/02/19 11:35 100 91/65 94/53 L Pulse Ox 11/02/19 22:14 11/02/19 20:54 11/02/19 20:00 11/02/19 18:58 11/02/19 13:54 11/02/19 12:19 11/02/19 11:35 93 L Weight Admit Weight 172 lb Weight 181 lb 1.6 oz Most Recent Monitor Data Heart Rate from ECG 87 NIBP 101/76 NIBP BP-Mean 84 Respiration from ECG 23 SpO2 95 I&O: 11/01/19 11/02/19 11/03/19 06:59 06:59 06:59 Intake Total 4026 2198 2140 Output Total 1550 550 450 Balance 2476 1648 1690 Result Diagrams: 11/02/19 03:43 11/02/19 03:43 Additional Labs: Accuchecks 11/02/19 11/02/19 11/02/19 20:42 16:27 11:19 POC Glucose 196 H 163 H 231 H 11/02/19 11/01/19 04:09 23:48 POC Glucose 112 H 95 EKG Reviewed by me: Yes (Tele SR) Hospitalist ROS - Review of Systems Respiratory: denies: cough, dry, shortness of breath, hemoptysis, SOB with excertion, pleuritic pain, sputum, wheezing, other Cardiovascular: denies: chest pain, palpitations, orthopnea, paroxysmal noc. dyspnea, edema, light headedness, other - Medication Medications: Active Medications Generic Name Dose Route Start Last Admin Trade Name Freq PRN Reason Stop Dose Admin Acetaminophen 650 mg 10/30/19 14:18 11/01/19 13:33 Tylenol PO 650 mg Q4H PRN Administration Headache/Fever/Mild Pain (1-3) Albuterol/Ipratropium 3 ml 10/30/19 14:30 11/02/19 22:14 Duoneb NEB 3 ml [id number] MICHAEL Administration Aspirin 81 mg 10/31/19 09:00 11/02/19 10:10 Ecotrin PO 81 mg DAILY MICHAEL Administration Calcium Carbonate 500 mg 11/02/19 12:00 11/02/19 17:22 Oscal-500 PO 500 mg TID-WM MICHAEL Administration Calcium/Vitamin D 1 tab 11/02/19 17:00 11/02/19 17:22 Caltrate 600 + Vit D PO 1 tab BID-WM MICHAEL Administration Ergocalciferol 1.25 mg 11/02/19 09:00 11/02/19 10:10 Drisdol PO 1.25 mg Q7DAYS MICHAEL Administration Vancomycin HCl 1 gm/ Device 200 mls @ 200 mls/hr 10/31/19 14:00 11/02/19 14: 53 IVPB 200 mls 1400 MICHAEL Administration Meropenem 1 gm/ Device 50 mls @ 100 mls/hr 11/01/19 21:00 11/02/19 20:40 IVPB 50 mls Q12HR MICHAEL Administration Insulin Human Lispro 0 units 11/01/19 20:57 11/02/19 11:38 Humalog SC 3 unit .MILD SLIDING SCALE PRN Administration Mild Correctional Scale Insulin Human Lispro 0 units 11/01/19 20:57 11/01/19 22:23 Humalog SC 2 unit .BEDTIME SLIDING SC PRN Administration Bedtime Correctional Scale Pantoprazole Sodium 40 mg 11/01/19 09:00 11/02/19 10:10 Protonix PO 40 mg DAILY MICHAEL Administration Saccharomyces Boulardii 250 mg 10/31/19 09:00 11/02/19 10:10 Florastor PO 250 mg DAILY MICHAEL Administration Senna/Docusate Sodium 1 tab 10/30/19 21:00 11/02/19 20:41 Senokot S PO Not Given BID MICHAEL Sodium Bicarbonate 650 mg 11/02/19 09:00 11/02/19 20:39 Bicarbonate, Sodium PO 650 mg TID MICHAEL Administration Sodium Chloride 10 ml 10/30/19 16:18 11/02/19 10:12 Flush - Normal Saline IVF 10 ml PRN PRN Administration Saline Flush - Exam General Appearance: NAD Neck: supple, no JVD Heart: no gallops, no rubs Respiratory: no wheezes, no rales Gastrointestinal: non-tender, non-distended, normal bowel sounds Extremities: no cyanosis Hosp A/P - Plan DVT proph w/SCDs 1. Acute hypoxic respiratory failure, suspected secondary to bilateral pneumonia. s/p NIPPV 2. Sepsis/Staph bacteremia. 3. Toxic metabolic encephalopathy, multifactorial. 4. Metabolic acidosis/lactic acidosis. 5. New diagnosis of atrial fibrillation - converted to SR. Not anticoag candidate. 6. Anemia prob due to nutritional def. FOBT - neg, s/p 2 units PRBC 7. Hypocalcemia/Vit D def 8. Hypertension. 9. Coronary artery disease, status post coronary artery bypass grafting. 10. History of nonsustained atrial arrhythmias. 11. History of abdominal aortic aneurysm. 12. Thrombocytopenia 13. Vit D def 14. Hyperlipidemia. PLAN: Receiving 1 unit PRBC Haptoglobin/LDH pending Cont PO Bicarb Cont IV Vancomycin/Meropenem Monitor Vancomycin level Replace Vit D Cont IMCU monitoring Cont other meds
[2019-11-03 04:47] LABS: #Eosinphils 0.4 thou/uL (0.0-0.7); #Lymphocytes 1.2 thou/uL (1.20-3.40); #Monocytes 0.5 thou/uL (0.11-0.59); #Neutrophils 1.4 thou/uL (1.40-6.50); %Basophils 0.7 % (0.0-1.0); %Eosinophils 10.5 % (0.0-10.0); %Lymphocytes 34.4 % (21.0-51.0); %Neutrophils 40.4 % (42.0-75.0); Hemoglobin 9.8 g/dL (14.0-18.0); Mean Corpuscular HGB CONC 33.1 g/dL (32.0-36.0); Mean Corpuscular Hemoglobin 33.7 pg (27.0-31.0); Mean Platelet Volume 7.5 fL (7.4-10.4); Platelet Count 148 thou/uL (130-400); White Blood Cell (WBC) Count 3.5 thou/uL (4.8-10.8)
[2019-11-03 05:05] LABS: Lactic Acid 2.2 mmol/L (0.5-2.2)
[2019-11-03 05:09] LABS: ALT (SGPT) 15 U/L (8-55); AST (SGOT) 24 U/L (5-34); Albumin 2.4 g/dL (3.4-4.8); Alkaline Phosphatase 100 U/L (40-110); Anion Gap 13 mmol/L (10-20); BUN (Urea Nitrogen) 31 mg/dL (8.4-25.7); Bilirubin, Total 0.3 mg/dL (0.2-1.2); Calc. Creatinine Clearance 30 mL/min (70-130); Calcium 6.4 mg/dL (7.8-10.44); Carbon Dioxide 25 mmol/L (23-31); Chloride 108 mmol/L (98-107); Estimated GFR-MDRD 28; Globulin 2.8 g/dL (2.4-3.5); Glucose 147 mg/dL (83-110); Potassium 4.3 mmol/L (3.5-5.1); Protein, Total 5.2 g/dL (5.8-8.1); Sodium 142 mmol/L (136-145)
--- NOTE | 2019-11-03 05:55 | PDOC.CPN ---
- Subjective Date: 11/02/19 Time: 16:30 Interval history: No acute changes. Patient currently in SR with PACs at time of visit. Pending transfer to tele - Review of Systems General: denies: fever/chills, weight/appetite/sleep changes, night sweats, fatigue Respiratory: reports: cough, congestion Cardiovascular: denies: chest pain, palpitation, edema, paroxysmal nocturnal dyspnea, orthopnea Gastrointestinal: denies: nausea, vomiting, diarrhea, constipation, abd pain, GI bleeding Musculoskeletal: denies: pain, tenderness, stiffness, swelling, arthritis/ arthralgias Neurological: reports: weakness - Objective Allergies/Adverse Reactions: Allergies Allergy/AdvReac Type Severity Reaction Status Date / Time No Known Allergies Allergy Verified 11/17/13 08:47 Visit Medications: Current Medications Acetaminophen (Tylenol) 650 mg OH Q4H PRN PRN Reason: Headache/Fever/Mild Pain (1-3) Acetaminophen (Tylenol) 650 mg PO Q4H PRN PRN Reason: Headache/Fever/Mild Pain (1-3) Last Admin: 11/01/19 13:33 Dose: 650 mg Acetaminophen (Tylenol Elixir) 650 mg PO Q4H PRN PRN Reason: pain/fever Albuterol/Ipratropium (Duoneb) 3 ml NEB [id number] Last Admin: 11/03/19 01:30 Dose: 3 ml Albuterol/Ipratropium (Duoneb) 3 ml NEB [id number] PRN PRN Reason: SOB &/or Wheezing Aspirin (Ecotrin) 81 mg PO DAILY [facility] Last Admin: 11/02/19 10:10 Dose: 81 mg Calcium Carbonate (Oscal-500) 500 mg PO TID-[facility] Last Admin: 11/02/19 17:22 Dose: 500 mg Calcium/Vitamin D (Caltrate 600 + Vit D) 1 tab PO BID-[facility] Last Admin: 11/02/19 17:22 Dose: 1 tab Dextrose/Water (Dextrose 50%) 25 gm SLOW IVP PRN PRN PRN Reason: Hypoglycemia Ergocalciferol (Drisdol) 1.25 mg PO Q7DAYS [facility] Last Admin: 11/02/19 10:10 Dose: 1.25 mg Glucagon (Glucagon) 1 mg IM PRN PRN PRN Reason: Hypoglycemia Vancomycin HCl 1 gm/ Device 200 mls @ 200 mls/hr IVPB 1400 [facility] Last Admin: 11/02/19 14:53 Dose: 200 mls Meropenem 1 gm/ Device 50 mls @ 100 mls/hr IVPB Q12HR [facility] Last Admin: 11/02/19 20:40 Dose: 50 mls Dextrose/Water (D5w) 1,000 mls @ 0 mls/hr IV .Q0M PRN PRN Reason: Hypoglycemia Insulin Human Lispro (Humalog) 0 units SC .MILD SLIDING SCALE PRN PRN Reason: Mild Correctional Scale Last Admin: 11/02/19 11:38 Dose: 3 unit Insulin Human Lispro (Humalog) 0 units SC .BEDTIME SLIDING SC PRN PRN Reason: Bedtime Correctional Scale Last Admin: 11/01/19 22:23 Dose: 2 unit Miscellaneous Medication (Pharmacy To Dose) 1 each IVPB PRN PRN PRN Reason: Pharmacy to dose Nitroglycerin (Nitrostat) 0.4 mg PO Q5MIN PRN PRN Reason: Chest Pain Pantoprazole Sodium (Protonix) 40 mg PO DAILY [facility] Last Admin: 11/02/19 10:10 Dose: 40 mg Polyethylene Glycol (Miralax) 17 gm PO DAILYPRN PRN PRN Reason: Constipation Saccharomyces Boulardii (Florastor) 250 mg PO DAILY [facility] Last Admin: 11/02/19 10:10 Dose: 250 mg Senna/Docusate Sodium (Senokot S) 1 tab PO BID [facility] Last Admin: 11/02/19 20:41 Dose: Not Given Sodium Bicarbonate (Bicarbonate, Sodium) 650 mg PO TID [facility] Last Admin: 11/02/19 20:39 Dose: 650 mg Sodium Chloride (Flush - Normal Saline) 10 ml IVF PRN PRN PRN Reason: Saline Flush Last Admin: 11/02/19 10:12 Dose: 10 ml Vital Signs & Weight: Vital Signs Temp Pulse Resp BP Pulse Ox 11/03/19 03:41 98.5 F 105 H 16 104/65 93 L 11/03/19 01:30 91 24 H 94 L 11/02/19 23:00 99.8 F H 90 18 102/52 L 94 L 11/02/19 22:14 88 24 H 95 11/02/19 20:54 99.3 F 11/02/19 20:00 95 11/02/19 18:58 90 23 H 95 Admit Weight 172 lb Weight 181 lb 1.6 oz - Physical Exam General: alert & oriented x3, appears well, no apparent distress HEENT: mucus membranes moist Neck: supple neck Cardiac: other (regular with ectopy) Lungs: no wheezes, no rales Neuro: grossly intact Abdomen: soft - Labs Result Diagrams: 11/03/19 04:27 11/03/19 04:27 Troponin/CKMB Troponin I 0.040 ng/mL (< 0.028) H 10/31/19 04:17 - Assessment/Plan Assessment/Plan: 1. PNA 2. Paroxysmal F 3. Anemia 4. MS changes Appears improved. No changes today. No ACT with anemia.
[2019-11-03] MEDS: Calcium Carbonate 500 MG TAB PO SCH ×3 (09:34→17:57)
[2019-11-03] MEDS: Aspirin 81 mg Enteric Coated Tablet PO SCH (09:34)
[2019-11-03] MEDS: Saccharomyces boulardii 250 MG CAP PO SCH (09:34)
[2019-11-03] MEDS: Senokot S 8.6-50 MG TAB PO SCH ×2 (09:34→20:36)
[2019-11-03] MEDS: Calcium Carbonate 600 MG + Vit D TAB PO SCH ×2 (09:34→17:57)
[2019-11-03] MEDS: Sodium Bicarbonate Tab 325 MG TAB PO SCH ×3 (09:34→20:36)
--- NOTE | 2019-11-03 09:48 | PRG ---
DATE OF SERVICE: 11/03/2019 SUBJECTIVE: The patient is doing well, has no complaints. OBJECTIVE: VITAL SIGNS: His temperature is 98.5, pulse 96, respirations 20, O2 saturation 95% on room air, blood pressure 110/66. HEENT: Unremarkable. NECK: No adenopathy or JVD. LUNGS: Clear. CARDIAC: S1 and S2. Regular. ABDOMEN: Soft. EXTREMITIES: No edema. ASSESSMENT: The patient is rapidly improving from his sepsis. PLAN: Continue antibiotics. No further Pulmonary recommendations. We will sign off. Job ID: [id number]
[2019-11-03 10:01] VITALS: BMI 25.0
[2019-11-03] MEDS: MEROPENEM 1 GM/50 ML 1 GM in Premix Bag 1 BAG IVPB SCH ×2 (10:20→20:34)
--- NOTE | 2019-11-03 10:35 | PRG ---
DATE OF SERVICE: 11/03/2019 SUBJECTIVE: Patient was seen and examined at bedside and overnight events noted. Patient denies any shortness of breath or chest pain or palpitation. No history of nausea or vomiting or diarrhea or fever or chills or cramps. OBJECTIVE: GENERAL: This is a well-built male, in no apparent distress. VITAL SIGNS: Temperature 98.5. Heart Rate 96. Respiratory rate 18. Blood pressure 110/66. HEENT: Atraumatic, normocephalic. Oral mucosa is moist. NECK: Supple. CARDIOVASCULAR: S1, S2 heard. Rate and rhythm regular. RESPIRATORY: Clear to auscultation. GASTROINTESTINAL: Abdomen is soft. MUSCULOSKELETAL: No tenderness. No edema. DERMATOLOGIC: No skin rash. NEUROLOGIC: Alert and awake and oriented x3. No focal neurologic deficits. Moving all the extremities. PSYCHIATRIC: Mood and affect normal. LABORATORY DATA: Potassium 4.3, BUN is 31, and creatinine is 2.2. ASSESSMENT AND PLAN: 1. Acute kidney injury on chronic kidney disease, stage 4, stable. 2. Edema, controlled. 3. History of hypertension. 4. Anemia. 5. Lactic acidosis. 6. Vitamin deficiency. 7. Hypercalcemia, better. Continue calcium supplements and vitamin D supplements and we will follow. Job ID: [id number]
[2019-11-03] MEDS: HumaLOG 300 UNITS/3 ML VIAL SC PRN (12:49)
[2019-11-03] MEDS: Vancomycin 1 GM in Premix Bag 1 BAG IVPB SCH (14:59)
--- NOTE | 2019-11-03 15:34 | PRG ---
DATE OF SERVICE: 11/03/2019 SUBJECTIVE: Mr. Zamudio currently has no complaints. His is present. OBJECTIVE: VITAL SIGNS: Blood pressure 104/58, pulse 91, temperature 98.5. LUNGS: Clear to auscultation. HEART: Regular rate and rhythm. ABDOMEN: Soft, nontender, and nondistended. EXTREMITIES: No edema. PERTINENT LABORATORY DATA: Hemoglobin 9.8. Creatinine 2.28 with a GFR of 28. IMPRESSION: 1. Paroxysmal atrial fibrillation. 2. Pneumonia. 3. Anemia. 4. Mental status changes. 5. Myelodysplastic syndrome. 6. Bacteremia. RECOMMENDATIONS: Mr. Zamudio from a CV standpoint appears stable. His echo appeared to have an EF within normal limits. No significant valvular regurgitation present or stenosis. Continue to monitor closely. Job ID: [id number]
--- NOTE | 2019-11-03 16:46 | PDOC.HOSPP ---
- Subjective Encounter Date: 11/03/19 Encounter Time: 11:00 Subjective: Patient seen and examined for Sepsis. No fever or chills. No CP/cough. No new complaints. No overnight events - Objective Vital Signs & Weight: Vital Signs (12 hours) Temp Pulse Resp BP Pulse Ox 11/03/19 15:37 98.7 F 89 22 H 106/58 L 95 11/03/19 14:45 90 16 93 L 11/03/19 11:35 98.5 F 91 23 H 104/58 L 94 L 11/03/19 11:06 90 16 92 L 11/03/19 08:30 98.5 F 96 20 110/66 95 11/03/19 07:08 85 16 92 L Weight Admit Weight 165 lb 5.547 oz Weight 185 lb Most Recent Monitor Data Heart Rate from ECG 87 NIBP 101/76 NIBP BP-Mean 84 Respiration from ECG 23 SpO2 95 I&O: 11/02/19 11/03/19 11/04/19 06:59 06:59 06:59 Intake Total 2198 2140 240 Output Total 550 450 250 Balance 1648 1690 -10 Result Diagrams: 11/03/19 04:27 11/03/19 04:27 Additional Labs: Accuchecks 11/03/19 11/03/19 11/02/19 10:38 05:36 20:42 POC Glucose 213 H 145 H 196 H EKG Reviewed by me: Yes (Tele SR) Hospitalist ROS - Review of Systems Respiratory: denies: cough, dry, shortness of breath, hemoptysis, SOB with excertion, pleuritic pain, sputum, wheezing, other Cardiovascular: denies: chest pain, palpitations, orthopnea, paroxysmal noc. dyspnea, edema, light headedness, other Gastrointestinal: denies: nausea, vomiting, abdominal pain, diarrhea, constipation, melena, hematochezia, other - Medication Medications: Active Medications Generic Name Dose Route Start Last Admin Trade Name Freq PRN Reason Stop Dose Admin Acetaminophen 650 mg 10/30/19 14:18 11/01/19 13:33 Tylenol PO 650 mg Q4H PRN Administration Headache/Fever/Mild Pain (1-3) Albuterol/Ipratropium 3 ml 10/30/19 14:30 11/03/19 14:45 Duoneb NEB 3 ml [id number] MICHAEL Administration Aspirin 81 mg 10/31/19 09:00 11/03/19 09:34 Ecotrin PO 81 mg DAILY MICHAEL Administration Calcium Carbonate 500 mg 11/02/19 12:00 11/03/19 12:49 Oscal-500 PO 500 mg TID-[facility] MICHAEL Administration Calcium/Vitamin D 1 tab 11/02/19 17:00 11/03/19 09:34 Caltrate 600 + Vit D PO 1 tab BID-[facility] MICHAEL Administration Ergocalciferol 1.25 mg 11/02/19 09:00 11/02/19 10:10 Drisdol PO 1.25 mg Q7DAYS MICHAEL Administration Vancomycin HCl 1 gm/ Device 200 mls @ 200 mls/hr 10/31/19 14:00 11/03/19 14: 59 IVPB 200 mls 1400 MICHAEL Administration Meropenem 1 gm/ Device 50 mls @ 100 mls/hr 11/01/19 21:00 11/03/19 10:20 IVPB 50 mls Q12HR MICHAEL Administration Insulin Human Lispro 0 units 11/01/19 20:57 11/03/19 12:49 Humalog SC 3 unit .MILD SLIDING SCALE PRN Administration Mild Correctional Scale Insulin Human Lispro 0 units 11/01/19 20:57 11/01/19 22:23 Humalog SC 2 unit .BEDTIME SLIDING SC PRN Administration Bedtime Correctional Scale Pantoprazole Sodium 40 mg 11/01/19 09:00 11/03/19 09:34 Protonix PO 40 mg DAILY MICHAEL Administration Saccharomyces Boulardii 250 mg 10/31/19 09:00 11/03/19 09:34 Florastor PO 250 mg DAILY MICHAEL Administration Senna/Docusate Sodium 1 tab 10/30/19 21:00 11/03/19 09:34 Senokot S PO 1 tab BID MICHAEL Administration Sodium Bicarbonate 650 mg 11/02/19 09:00 11/03/19 14:59 Bicarbonate, Sodium PO 650 mg TID MICHAEL Administration Sodium Chloride 10 ml 10/30/19 16:18 11/02/19 10:12 Flush - Normal Saline IVF 10 ml PRN PRN Administration Saline Flush - Exam General Appearance: NAD Heart: RRR, no gallops Respiratory: no wheezes, no ronchi Gastrointestinal: non-tender, non-distended, normal bowel sounds Extremities: no cyanosis Neurological: no new deficit Hosp A/P - Plan DVT proph w/SCDs 1. Acute hypoxic respiratory failure, suspected secondary to bilateral pneumonia. s/p NIPPV 2. Severe Sepsis/Staph bacteremia ?scrotal cellulitis 3. Toxic metabolic encephalopathy. 4. Metabolic acidosis/lactic acidosis. 5. New diagnosis of atrial fibrillation - converted to SR. Not anticoag candidate. 6. Anemia prob due to nutritional def. FOBT - neg, s/p 2 units PRBC 7. Hypocalcemia/Vit D def 8. Hypertension. 9. Coronary artery disease, status post coronary artery bypass grafting. 10. History of nonsustained atrial arrhythmias. 11. History of abdominal aortic aneurysm. 12. Thrombocytopenia 13. Hyperlipidemia. PLAN: Await Urology input Cont IV Vancomycin/Meropenem Cont PO Bicarb/Vit D and other meds as above AM labs Haptoglobin/LDH pending
[2019-11-04 04:43] LABS: #Eosinphils 0.5 thou/uL (0.0-0.7); #Lymphocytes 1.6 thou/uL (1.20-3.40); #Monocytes 0.7 thou/uL (0.11-0.59); %Basophils 0.4 % (0.0-1.0); %Eosinophils 10.1 % (0.0-10.0); %Lymphocytes 33.9 % (21.0-51.0); %Monocytes 14.1 % (0.0-10.0); %Neutrophils 41.5 % (42.0-75.0); Hemoglobin 9.7 g/dL (14.0-18.0); Mean Corpuscular HGB CONC 31.5 g/dL (32.0-36.0); Mean Corpuscular Hemoglobin 32.6 pg (27.0-31.0); Mean Platelet Volume 7.5 fL (7.4-10.4); Platelet Count 164 thou/uL (130-400); RBC Distribution Width 14.9 % (11.5-14.5); Red Blood Cell (RBC) Count 2.97 mill/uL (4.70-6.10); White Blood Cell (WBC) Count 4.7 thou/uL (4.8-10.8)
[2019-11-04 04:58] LABS: Anion Gap 11 mmol/L (10-20); BUN (Urea Nitrogen) 30 mg/dL (8.4-25.7); Calc. Creatinine Clearance 33 mL/min (70-130); Calcium 6.6 mg/dL (7.8-10.44); Carbon Dioxide 26 mmol/L (23-31); Chloride 106 mmol/L (98-107); Estimated GFR-MDRD 30; Glucose 127 mg/dL (83-110); Potassium 4.3 mmol/L (3.5-5.1); Sodium 139 mmol/L (136-145)
[2019-11-04] MEDS: Calcium Carbonate 500 MG TAB PO SCH ×3 (10:48→17:49)
[2019-11-04] MEDS: Acetaminophen 325 MG TAB PO PRN (10:48)
[2019-11-04] MEDS: Aspirin 81 mg Enteric Coated Tablet PO SCH (10:48)
[2019-11-04] MEDS: Saccharomyces boulardii 250 MG CAP PO SCH (10:48)
[2019-11-04] MEDS: Senokot S 8.6-50 MG TAB PO SCH ×2 (10:49→20:25)
[2019-11-04] MEDS: Sodium Bicarbonate Tab 325 MG TAB PO SCH ×3 (10:49→20:25)
[2019-11-04] MEDS: MEROPENEM 1 GM/50 ML 1 GM in Premix Bag 1 BAG IVPB SCH (10:51)
[2019-11-04] MEDS: Calcium Carbonate 600 MG + Vit D TAB PO SCH ×2 (10:54→18:03)
--- NOTE | 2019-11-04 11:59 | PRG ---
DATE OF SERVICE: 11/04/2019 SUBJECTIVE: Patient was seen and examined at bedside and overnight events noted. Patient denies any shortness of breath or chest pain or palpitation. No history of nausea or vomiting or diarrhea or fever or chills or cramps. OBJECTIVE: General: This is well-built male, in no apparent distress. Vital Signs: Temperature 98.9, pulse 96, respiratory rate 20, blood pressure 93/53. HEENT: Atraumatic, normocephalic. Oral mucosa is moist. Neck: Supple. Cardiovascular: S1, S2 heard. Rate and rhythm regular. Respiratory: Clear to auscultation. Gastrointestinal: Abdomen is soft. Musculoskeletal: No tenderness. No edema. Dermatologic: No skin rash. Neurologic: Alert and awake and oriented x3. No focal neurologic deficits. Moving all the extremities. Psychiatric: Mood and affect normal. LABORATORY DATA: Potassium is 4.3, BUN is 30, creatinine is 2.1, calcium is 6.3. ASSESSMENT AND PLAN: 1. Acute kidney injury on chronic kidney disease, stage 4, stable. 2. Hypercalcemia, better. 3. Vitamin D deficiency. 4. Lactic acidosis. 5. History of hypertension. 6. Anemia of chronic disease. Labs are stable. Avoid nephrotoxins and continue calcium and vitamin D supplements. Job ID: [id number]
[2019-11-04 13:36] LABS: Vancomycin, Trough 25.5 ug/mL
[2019-11-04] MEDS: Vancomycin 1 GM in Premix Bag 1 BAG IVPB SCH (14:19)
--- NOTE | 2019-11-04 15:16 | PRG ---
DATE OF SERVICE: 11/04/2019 SUBJECTIVE: He is feeling better, wants to go home now. There has been marked decrease in swelling in the scrotal area. OBJECTIVE: LUNGS: With faint basilar crackles. HEART: S1 and S2. ABDOMEN: Soft. Distention is less. GENITOURINARY: Scrotum with markedly decreased distention, much less tenderness. LABORATORY DATA: White cell count 4.7, hemoglobin 9.7, and platelets 164. Creatinine is at 2.12. Cultures probably reflect contamination of the blood specimen. ASSESSMENT AND DISCUSSION: 1. Coronary artery disease. 2. Hypertension. 3. Type 2 diabetes. 4. Left hip pain. 5. Swelling of the scrotum with anasarca, which has improved markedly. 6. Pancytopenia. 7. Bacteremia, most likely due to contamination of the sample. At this moment, we will go ahead and discontinue antimicrobial therapy. Job ID: [id number]
--- NOTE | 2019-11-04 16:01 | PRG ---
DATE OF SERVICE: 11/04/2019 SUBJECTIVE: Mr. Zamudio is doing well. No current complaints. No chest pain or pressure noted. He has not had any recurrent episodes of atrial fibrillation. His one episode of atrial fibrillation was short-lived. OBJECTIVE: VITAL SIGNS: Blood pressure 106/51, pulse 91, respirations 20. LUNGS: Clear to auscultation. HEART: Regular rate and rhythm. ABDOMEN: Soft, nontender, nondistended. EXTREMITIES: No edema. IMPRESSION: 1. Atrial fibrillation. 2. Coronary artery disease. 3. Status post bypass surgery. RECOMMENDATIONS: We would recommend 3-week outpatient event recorder. We will schedule as an outpatient. Otherwise, we would not recommend anticoagulation therapy for Mr. Zamudio, given recent anemia with transfusion. Otherwise, from a CV standpoint, I have no further recommendations. We will follow up as an outpatient with a possible EVR. Job ID: [id number]
[2019-11-04] MEDS: HumaLOG 300 UNITS/3 ML VIAL SC PRN (18:03)
--- NOTE | 2019-11-04 19:11 | PDOC.HOSPP ---
- Subjective Encounter Date: 11/04/19 Encounter Time: 09:00 Subjective: Patient seen and examined for Sepsis. Scrotal swelling improving. No fever or chills. No new complaints. No overnight events - Objective Vital Signs & Weight: Vital Signs (12 hours) Temp Pulse Pulse Resp BP BP Pulse Ox 11/04/19 19:03 12 11/04/19 15:41 98.0 F 93 21 H 108/56 L 98 11/04/19 13:54 91 16 93 L 11/04/19 12:10 98 106/51 L 11/04/19 11:37 98.2 F 88 22 H 110/59 L 93 L 11/04/19 10:11 82 14 95 11/04/19 08:26 99.8 F H 96 22 H 93/53 L 94 L Pulse Ox 11/04/19 19:03 11/04/19 15:41 11/04/19 13:54 11/04/19 12:10 100 11/04/19 11:37 11/04/19 10:11 11/04/19 08:26 Weight Admit Weight 165 lb 5.547 oz Weight 183 lb Most Recent Monitor Data Heart Rate from ECG 87 NIBP 101/76 NIBP BP-Mean 84 Respiration from ECG 23 SpO2 95 I&O: 11/03/19 11/04/19 11/05/19 06:59 06:59 06:59 Intake Total 2140 240 720 Output Total 450 250 Balance 1690 -10 720 Result Diagrams: 11/04/19 04:18 11/04/19 04:18 Additional Labs: Accuchecks 11/04/19 11/04/19 11/04/19 16:48 10:54 04:41 POC Glucose 167 H 147 H 122 H 11/03/19 20:44 POC Glucose 126 H Microbiology 11/01/19 04:50 Stool Stool Occult Blood (RAULITO) - Final 10/30/19 18:20 Nasopharyngeal swab Respiratory Virus Panel (PCR) - Final 10/30/19 13:06 Nasal swab Influenza Types A,B Direct EIA - Final 10/30/19 12:29 Venous blood - Right Arm Blood Culture - Final Staphylococcus epidermidis 10/30/19 12:29 Venous blood - Right Arm Blood Culture - Final Staphylococcus epidermidis 10/30/19 12:29 Venous blood - Left Arm Blood Culture - Final Staphylococcus epidermidis Staphylococcus capitis 10/30/19 12:29 Venous blood - Right Arm Blood Culture - Preliminary Gram Positive Cocci 10/30/19 12:29 Venous blood - Left Arm Blood Culture - Preliminary Staphylococcus epidermidis Coagulase Neg Staphylococcus 10/30/19 12:29 Venous blood - Left Arm Blood Culture - Preliminary Staphylococcus epidermidis Coagulase Neg Staphylococcus 10/30/19 12:29 Venous blood - Left Arm Blood Culture - Preliminary Staphylococcus epidermidis Laboratory Tests 11/02/19 03:43 25-OH Vitamin D Total 5.9 L EKG Reviewed by me: Yes (Tele SR) Hospitalist ROS - Review of Systems Respiratory: denies: cough, dry, shortness of breath, hemoptysis, SOB with excertion, pleuritic pain, sputum, wheezing, other Cardiovascular: denies: chest pain, palpitations, orthopnea, paroxysmal noc. dyspnea, edema, light headedness, other Gastrointestinal: denies: nausea, vomiting, abdominal pain, diarrhea, constipation, melena, hematochezia, other - Medication Medications: Active Medications Generic Name Dose Route Start Last Admin Trade Name Freq PRN Reason Stop Dose Admin Acetaminophen 650 mg 10/30/19 14:18 11/04/19 10:48 Tylenol PO 650 mg Q4H PRN Administration Headache/Fever/Mild Pain (1-3) Albuterol/Ipratropium 3 ml 10/30/19 14:30 11/04/19 19:03 Duoneb NEB 3 ml [id number] MICHAEL Administration Aspirin 81 mg 10/31/19 09:00 11/04/19 10:48 Ecotrin PO 81 mg DAILY MICHAEL Administration Calcium Carbonate 500 mg 11/02/19 12:00 11/04/19 17:49 Oscal-500 PO 500 mg TID-[facility] Administration Calcium/Vitamin D 1 tab 11/02/19 17:00 11/04/19 18:03 Caltrate 600 + Vit D PO 1 tab BID-[facility] Administration Ergocalciferol 1.25 mg 11/02/19 09:00 11/02/19 10:10 Drisdol PO 1.25 mg Q7DAYS MICHAEL Administration Insulin Human Lispro 0 units 11/01/19 20:57 11/04/19 18:03 Humalog SC 2 unit .MILD SLIDING SCALE PRN Administration Mild Correctional Scale Insulin Human Lispro 0 units 11/01/19 20:57 11/01/19 22:23 Humalog SC 2 unit .BEDTIME SLIDING SC PRN Administration Bedtime Correctional Scale Pantoprazole Sodium 40 mg 11/01/19 09:00 11/04/19 10:49 Protonix PO 40 mg DAILY MICHAEL Administration Saccharomyces Boulardii 250 mg 10/31/19 09:00 11/04/19 10:48 Florastor PO 250 mg DAILY MICHAEL Administration Senna/Docusate Sodium 1 tab 10/30/19 21:00 11/04/19 10:49 Senokot S PO 1 tab BID MICHAEL Administration Sodium Bicarbonate 650 mg 11/02/19 09:00 11/04/19 14:19 Bicarbonate, Sodium PO 650 mg TID MICHAEL Administration Sodium Chloride 10 ml 10/30/19 16:18 11/02/19 10:12 Flush - Normal Saline IVF 10 ml PRN PRN Administration Saline Flush - Exam General Appearance: NAD Heart: RRR, no gallops Respiratory: no wheezes, no ronchi Gastrointestinal: non-tender, non-distended, normal bowel sounds Extremities: no cyanosis Neurological: no new deficit Hosp A/P - Plan DVT proph w/SCDs 1. Acute hypoxic respiratory failure, suspected secondary to bilateral pneumonia. s/p NIPPV 2. Severe Sepsis/Staph bacteremia ?scrotal cellulitis 3. Toxic metabolic encephalopathy. 4. Metabolic acidosis/lactic acidosis. 5. New diagnosis of atrial fibrillation - converted to SR. Not anticoag candidate. 6. Anemia prob due to nutritional def. FOBT - neg, s/p 2 units PRBC 7. Hypocalcemia/Vit D def 8. Hypertension. 9. Coronary artery disease, status post coronary artery bypass grafting. 10. History of nonsustained atrial arrhythmias. 11. History of abdominal aortic aneurysm. 12. Thrombocytopenia 13. Hyperlipidemia. PLAN: Cont IV Vancomycin/Meropenem ID/Nephro following Cont PO Bicarb/Vit D and other meds as above Haptoglobin/LDH pending AM labs Event recorder at ne
[2019-11-05 05:37] LABS: #Eosinphils 0.5 thou/uL (0.0-0.7); #Lymphocytes 1.5 thou/uL (1.20-3.40); #Monocytes 0.7 thou/uL (0.11-0.59); #Neutrophils 2.3 thou/uL (1.40-6.50); %Basophils 0.8 % (0.0-1.0); %Eosinophils 10.1 % (0.0-10.0); %Lymphocytes 29.7 % (21.0-51.0); %Monocytes 13.3 % (0.0-10.0); Hemoglobin 9.4 g/dL (14.0-18.0); Mean Corpuscular HGB CONC 32.3 g/dL (32.0-36.0); Mean Corpuscular Hemoglobin 33.7 pg (27.0-31.0); Mean Platelet Volume 7.4 fL (7.4-10.4); Platelet Count 148 thou/uL (130-400); RBC Distribution Width 14.6 % (11.5-14.5); White Blood Cell (WBC) Count 4.9 thou/uL (4.8-10.8)
[2019-11-05 05:55] LABS: Anion Gap 11 mmol/L (10-20); BUN (Urea Nitrogen) 29 mg/dL (8.4-25.7); Calc. Creatinine Clearance 35 mL/min (70-130); Calcium 6.9 mg/dL (7.8-10.44); Carbon Dioxide 23 mmol/L (23-31); Chloride 107 mmol/L (98-107); Estimated GFR-MDRD 33; Glucose 125 mg/dL (83-110); Potassium 4.4 mmol/L (3.5-5.1); Sodium 137 mmol/L (136-145)
[2019-11-05] MEDS: Calcium Carbonate 600 MG + Vit D TAB PO SCH (08:11)
[2019-11-05] MEDS: Sodium Bicarbonate Tab 325 MG TAB PO SCH ×2 (08:11→15:36)
[2019-11-05] MEDS: Aspirin 81 mg Enteric Coated Tablet PO SCH (08:11)
[2019-11-05] MEDS: Saccharomyces boulardii 250 MG CAP PO SCH (08:11)
[2019-11-05] MEDS: Calcium Carbonate 500 MG TAB PO SCH ×2 (08:11→15:37)
[2019-11-05] MEDS: Senokot S 8.6-50 MG TAB PO SCH (08:11)
--- NOTE | 2019-11-05 12:14 | PRG ---
DATE OF SERVICE: 11/05/2019 SUBJECTIVE: Patient was seen and examined at bedside and overnight events noted. Patient denies any shortness of breath or chest pain or palpitation. No history of nausea or vomiting or diarrhea or fever or chills or cramps. OBJECTIVE: GENERAL: This is a well-built male, in no apparent distress. VITAL SIGNS: Temperature 98.1. Heart rate 92. Respiratory rate 18. Blood pressure 106/56. HEENT: Atraumatic, normocephalic. Oral mucosa is moist NECK: Supple. CARDIOVASCULAR: S1, S2 heard. Rate and rhythm regular. RESPIRATORY: Clear to auscultation. GASTROINTESTINAL: Abdomen is soft. MUSCULOSKELETAL: No tenderness. No edema. DERMATOLOGIC: No skin rash. NEUROLOGIC: Alert and awake and oriented X3. No focal neurologic deficits. Moving all the extremities. PSYCHIATRIC: Mood and affect normal. LABORATORY DATA: Potassium is 4.4, BUN is 29, creatinine is 1.97. ASSESSMENT AND PLAN: 1. Acute kidney injury on chronic kidney disease stage 3, stable. 2. Hypocalcemia, better. 3. Vitamin D deficiency. 4. Lactic acidosis. 5. History of hypertension. 6. Anemia of chronic disease. We will continue to monitor and continue calcium supplements. Job ID: [id number]
[2019-11-05 12:42] VITALS: BP 99/55; TEMP 98
--- NOTE | 2019-11-05 13:36 | EKG ---
Test Reason : Blood Pressure : / mmHG Vent. Rate : 094 BPM Atrial Rate : 092 BPM P-R Int : 000 ms QRS Dur : 080 ms QT Int : 386 ms P-R-T Axes : 000 037 127 degrees QTc Int : 482 ms Atrial fibrillation with premature ventricular or aberrantly conducted complexes Low voltage QRS Cannot rule out Anterior infarct , age undetermined Abnormal ECG Confirmed by ANANTH MCGEE, ETIENNE (11), editor newspaper MANUEL VALENTINO ([id number]) on 11/05/2019 1:35:53 PM Referred By: Confirmed By:ETIENNE WADSWORTH MD
[2019-11-05] MEDS ORDERED: Vancomycin 1 GM in Premix Bag 1 BAG IVPB SCH (14:00)
--- NOTE | 2019-11-05 15:07 | DIS ---
DATE OF ADMISSION: 10/30/2019 DATE OF DISCHARGE: 11/05/2019 DISCHARGE DISPOSITION: Home. FOLLOWUP: 1. Follow up with primary care physician, Dr. Arvin Gonzales in 1 week. 2. Follow up with Infectious Disease, Dr. Keene. 3. Follow up with the Urology as outpatient. 4. An event monitor will be arranged. The patient was advised to contact Dr. Kinney's office on Thursday. This was not arranged due to weekend. ALLERGIES: NO KNOWN DRUG ALLERGIES. LABORATORY DATA: Repeat CBC and basic metabolic profile after 1 week are recommended. Primary care physician advised to follow. DISCHARGE MEDICATIONS: 1. Zocor 20 mg q.h.s. 2. Ergocalciferol 1.25 mg every 7 days. 3. Aspirin 81 mg daily. 4. Calcium carbonate 500 mg 3 times a day. 5. Protonix 40 mg daily. The patient was seen on the day of discharge. Denies any new complaints. No chest pain, shortness of breath, or palpitations reported. DIAGNOSTIC TESTS: Chest x-ray on admission showed questionable bibasilar infiltrate. Bilateral lower extremity Doppler was negative. CT scan of the abdomen and pelvis showed bibasilar atelectasis and infiltrate with small right effusion. There was abdominal aortic aneurysm with possible fecal impaction. Testicular ultrasound showed no significant blood flow identified to either testicle with diffuse scrotal edema and small hydrocele. Echocardiogram showed left ventricular ejection fraction of 50% to 55% with [id number] dilated left atrium, [id number] mitral regurgitation, mild tricuspid regurgitation. INPATIENT CONSULTANTS: 1. Cardiology, Dr. Kinney. 2. Nephrology, Dr. Salvador. 3. Infectious Disease, Dr. Keene. 4. Critical Care, Dr. Lawrence. 5. Palliative Care team. BRIEF HOSPITAL COURSE: The patient is an 79-year-old male with diabetes mellitus type 2, coronary artery disease, presented to the emergency room with altered mentation. His workup was consistent with acute hypoxic respiratory failure secondary to bilateral pneumonia along with sepsis. He was found to have significant metabolic acidosis. His pH on admission was 7.19 with pCO2 of 32 and pO2 of 94 with bicarbonate 11.9. His creatinine was 2.31 with bicarbonate of less than 8, potassium of 5.8. Strep pneumoniae and urinary Legionella antigen were negative. He was started on broad-spectrum antibiotics. His blood cultures show two of two Staph epidermidis. Echocardiogram was negative for vegetation. With IV hydration as well as sodium bicarbonate, his acid-base status was corrected. The patient was also found to have anemia with hemoglobin of 6.9. He received a total of 2 units of PRBC. There was no active bleeding identified. The patient also was found to be in atrial fibrillation, probably due to sepsis. He spontaneously converted to sinus rhythm. He is not a candidate for anticoagulation. Dr. Keene discontinued the antibiotics yesterday. According to Dr. Keene, his blood cultures are probably contamination. The patient has been afebrile overnight. He has been cleared by consultants for discharge. FINAL DIAGNOSES: 1. Acute hypoxic respiratory failure. Second suspected secondary to bilateral pneumonia, status post noninvasive positive-pressure ventilation. 2. Severe sepsis with questionable Staphylococcus bacteremia. Contamination per Infectious Disease number. 3. Scrotal swelling, probably due to anasarca/moderate protein energy malnutrition, present on admission. 4. Toxic metabolic encephalopathy, resolved. 5. Metabolic acidosis/lactic acidosis. 6. New onset atrial fibrillation converted to sinus rhythm, not anticoagulation candidate. 7. Anemia probably due to nutritional deficiency. 8. Hypocalcemia with vitamin D deficiency. He has been started on vitamin D supplementation. His vitamin D level was 5.9. 9. Coronary artery disease. 10. Hypertension. 11. Status post coronary artery bypass grafting. 12. History of abdominal aortic aneurysm. 13. Thrombocytopenia. 14. Hyperlipidemia. 15. History of nonsustained atrial arrhythmias. TIME SPENT: Time coordinating the discharge of this patient was 37 minutes. Job ID: [id number]
== END 2019-11-05 15:54 | disposition home health service (06) | DRG 871 ==
LOC: ERS 11:18 → CCU 14:16 → IMCU/EMU 10-31 17:45 → 2NO 11-02 23:07
PROVIDERS: ADMIT Internal Medicine; ATTEND Internal Medicine
PROC: 5A09357 Assistance with Respiratory Ventilation, Less than 24 Consecutive Hours, Continuous Positive Airway Pressure (ICD-10-PCS; principal; 2019-10-30)
PROC: 30233N1 Transfusion of Nonautologous Red Blood Cells into Peripheral Vein, Percutaneous Approach (ICD-10-PCS; 2019-10-31)
DX: A41.1 Sepsis due to other specified staphylococcus (principal); J96.01 Acute respiratory failure with hypoxia; J18.9 Pneumonia, unspecified organism; G92 Toxic encephalopathy; E44.0 Moderate protein-calorie malnutrition; E87.2 Acidosis; D61.818 Other pancytopenia; N17.9 Acute kidney failure, unspecified; N18.4 Chronic kidney disease, stage 4 (severe); R65.20 Severe sepsis without septic shock; D53.9 Nutritional anemia, unspecified; E83.51 Hypocalcemia; I25.10 Atherosclerotic heart disease of native coronary artery without angina pectoris; D69.6 Thrombocytopenia, unspecified; E78.5 Hyperlipidemia, unspecified; E11.649 Type 2 diabetes mellitus with hypoglycemia without coma; F17.200 Nicotine dependence, unspecified, uncomplicated; E11.22 Type 2 diabetes mellitus with diabetic chronic kidney disease; I12.9 Hypertensive chronic kidney disease with stage 1 through stage 4 chronic kidney disease, or unspecified chronic kidney disease; I48.0 Paroxysmal atrial fibrillation; D63.1 Anemia in chronic kidney disease; R60.1 Generalized edema; R00.1 Bradycardia, unspecified; Z68.25 Body mass index [BMI] 25.0-25.9, adult; Z95.1 Presence of aortocoronary bypass graft; Z28.82 Immunization not carried out because of caregiver refusal; Z79.4 Long term (current) use of insulin; Z79.899 Other long term (current) drug therapy
CPT/HCPCS: 36415; 36416; 36430; 51701; 71045; 74176; 76870; 80048; 80053; 80202; 81003; 81015; 82010; 82274; 82306; 82436; 82533; 82550; 82607; 82746; 82805; 83010; 83605; 83615; 83690; 83735; 83880; 83970; 84100; 84133; 84300; 84484; 84550; 85025; 85046; 85379; 86140; 86850; 86900; 86901; 87040; 87077; 87149; 87186; 87449; 87633; 87804; 87899; 90471; 90670; 93005; 93306; 93970; 93976; 94640; 94660; 94760; 96361; 96365; 96366; 96367; 96372; 96375; G0009; J0692; J1100; J1644; J1650; J1815; J1956; J2185; J3370; J3475; J3490; J7070; J7611; J7620; P9016